=== PATIENT | male | born 1945 | race Caucasian/White ===

== ENCOUNTER 2016-12-14 05:29 | Inpatient (IN) | payer MEDICARE, OTHER ==
[2016-12-14] MEDS ORDERED: HYDROmorphone 0.5 MG/0.5 ML Syringe IVPUSH ONE (06:07)
[2016-12-14] MEDS ORDERED: Sodium Chloride 0.9% 1,000 ML IV SCH (06:15)
--- NOTE | 2016-12-14 06:15 | EDM.PDOC ---
<Minor Wilson - Last Filed: 12/14/16 06:39> ED HPI GENERAL MEDICAL PROBLEM - General Chief Complaint: Abdominal Pain Stated Complaint: ABD/CHEST PAIN Time Seen by Provider: 12/14/16 06:05 Source of Information: Reports: Patient History Limitations: Reports: No Limitations - History of Present Illness INITIAL COMMENTS - FREE TEXT/NARRATIVE: 71-year-old male woke this morning with epigastric pain radiating into the substernal area and neck about 2-1/2 hours ago. It was not accompanied with diaphoresis, shortness of breath but he does feel his abdomen is somewhat distended. Pain radiates into his back as well. No nausea or vomiting. No diarrhea. No fevers or chills. 2 years ago he had a section of bowel removed due to a "twisted colon". This feels different. He was scheduled to have an annual physical at the [facility] today. Onset: Unknown/Unsure (Woke with pain at 4 AM) Location: Reports: Chest, Abdomen Quality: Reports: Ache, Burning Severity: Moderate Improves with: Reports: None Worsens with: Reports: Breathing (Deep breath causes increased pain) Associated Symptoms: Reports: Chest Pain, Malaise. Denies: Confusion, Cough, Diaphoresis, Fever/Chills, Nausea/Vomiting, Shortness of Breath Upper Abdomen Pain Score (Numeric/FACES): 10 - Related Data Allergies Allergy/AdvReac Type Severity Reaction Status Date / Time No Known Allergies Allergy Verified 12/14/16 05:42 Home Meds: Home Meds Lisinopril [Prinivil] 10 mg PO DAILY 07/09/13 [History] Lovastatin [Mevacor] 20 mg PO BEDTIME 07/09/13 [History] Oxybutynin Chloride [Ditropan Xl] 5 mg PO BID 07/09/13 [History] Terazosin HCl [Terazosin] 10 mg PO BEDTIME 07/09/13 [History] amLODIPine [Norvasc] 2.5 mg PO BID 07/09/13 [History] glipiZIDE [Glucotrol] 2.5 mg PO BIDAC 07/09/13 [History] metFORMIN HCl [Fortamet] 1,000 mg PO BIDAC 07/09/13 [History] Gabapentin [Neurontin] 600 mg PO QID 12/14/16 [History] Past Medical History HEENT History: Reports: Impaired Vision Cardiovascular History: Reports: High Cholesterol, Hypertension Gastrointestinal History: Reports: Bowel Obstruction Genitourinary History: Reports: Retention, Urinary, Other (See Below) Other Genitourinary History: enlarged prostate Endocrine/Metabolic History: Reports: Diabetes, Type II Hematologic History: Reports: Blood Transfusion(s) - Infectious Disease History Infectious Disease History: Reports: Chicken Pox, Measles - Past Surgical History GI Surgical History: Reports: Colonoscopy Other GI Surgeries/Procedures: colectomy Musculoskeletal Surgical History: Reports: Knee Replacement, Other (See Below) Other Musculoskeletal Surgeries/Procedures:: back surgery x2 Social & Family History - Tobacco Use Smoking Status *Q: Never Smoker Years of Tobacco use: 40 Used Tobacco, but Quit: No Month Tobacco Last Used: 4 Second Hand Smoke Exposure: No - Caffeine Use Caffeine Use: Reports: Coffee, Soda - Alcohol Use Days Per Week of Alcohol Use: 0 - Recreational Drug Use Recreational Drug Use: No ED ROS GENERAL - Review of Systems Review Of Systems: See Below Constitutional: Reports: Malaise. Denies: Fever, Chills HEENT: Reports: No Symptoms Respiratory: Denies: Shortness of Breath Cardiovascular: Reports: Chest Pain. Denies: Palpitations GI/Abdominal: Reports: Abdominal Pain. Denies: Nausea, Vomiting : Reports: No Symptoms Musculoskeletal: Reports: Back Pain (Chronic and stable) Neurological: Reports: No Symptoms ED EXAM, GI/ABD - Physical Exam Exam: See Below Exam Limited By: No Limitations General Appearance: Alert, Mild Distress (Looks uncomfortable) Eyes: Bilateral: Normal Appearance (No jaundice) Respiratory/Chest: No Respiratory Distress, Lungs Clear Cardiovascular: Regular Rate, Rhythm GI/Abdominal Exam: Normal Bowel Sounds, Distended (Abdomen may be somewhat distended but the patient is very obese. He reacts with tenderness to palpation across the upper abdomen, particularly in the epigastric area. He has cutaneous lipomas palpable, no definite intra-abdominal masses or abnormality) Extremities: Pedal Edema (Just a trace of lower extremity edema which is symmetric) Neurological: Alert, Oriented Psychiatric: Normal Affect, Normal Mood Skin Exam: Warm, Dry EKG INTERPRETATION Rhythm: NSR QRS: RBBB (Patient is a right bundle branch block which is fairly consistent with 2 years prior) Course - Vital Signs Last Recorded V/S: Last Vital Signs Temp 97.7 F 12/14/16 05:41 Pulse 66 12/14/16 08:45 Resp 24 H 12/14/16 05:41 BP 143/60 H 12/14/16 08:45 Pulse Ox 96 12/14/16 08:45 - Orders/Labs/Meds Orders: Active Orders 24 hr Category Date Time Status EKG Documentation Completion [RC] ASDIRECTED Care 12/14/16 06:07 Active EKG Documentation Completion [RC] ASDIRECTED Care 12/14/16 06:07 Active Peripheral IV Care [RC] . DIRECTED Care 12/14/16 09:21 Active Chest Abdomen Pelvis w Cont [CT] Stat Exams 12/14/16 06:58 Taken RED BLOOD CELLS LP [BBK] Stat Lab 12/14/16 09:19 Ordered TYPE AND SCREEN [BBK] Stat Lab 12/14/16 09:19 Ordered Pantoprazole [ProTONIX IV] Med 12/14/16 09:30 Active 80 mg IVPUSH .BOLUS Sodium Chloride 0.9% [Normal Saline] 1,000 ml Med 12/14/16 06:15 Active IV ASDIRECTED Sodium Chloride 0.9% [Normal Saline] 100 ml Med 12/14/16 10:00 Active Pantoprazole [ProTONIX IV] 80 mg IV 10 mls/hr Sodium Chloride 0.9% [Saline Flush] Med 12/14/16 09:21 Active 10 ml FLUSH ASDIRECTED PRN Peripheral IV Insertion Adult [OM.PC] Urgent Oth 12/14/16 09:21 Ordered EKG 12 Lead [EK] Routine Ther 12/14/16 06:07 Ordered Medication Orders Sodium Chloride (Normal Saline) 1,000 mls @ 150 mls/hr IV ASDIRECTED HITESH Last Admin: 12/14/16 06:15 Dose: 150 mls/hr Pantoprazole Sodium 80 mg/ (Sodium Chloride) 100 mls @ 10 mls/hr IV .Q10H HITESH Pantoprazole Sodium (Protonix Iv) 80 mg IVPUSH .BOLUS HITESH Sodium Chloride (Saline Flush) 10 ml FLUSH ASDIRECTED PRN PRN Reason: Keep Vein Open Labs: Laboratory Tests 12/14/16 12/14/16 Range/Units 06:18 06:18 WBC 12.0 H (4.5-11.0) K/uL RBC 4.41 (4.30-5.90) M/uL Hgb 12.6 (12.0-15.0) g/dL Hct 37.9 L (40.0-54.0) % MCV 86 (80-98) fL MCH 29 (27-31) pg MCHC 33 (32-36) % Plt Count 349 (150-400) K/uL Neut % (Auto) 70 H (36-66) % Lymph % (Auto) 19 L (24-44) % [place] % (Auto) 8 H (2-6) % Eos % (Auto) 2 (2-4) % Baso % (Auto) 1 (0-1) % Sodium 140 (140-148) mmol/L Potassium 3.9 (3.6-5.2) mmol/L Chloride 104 (100-108) mmol/L Carbon Dioxide 24 (21-32) mmol/L Anion Gap 12.1 (5.0-14.0) mmol/L BUN 19 H D (7-18) mg/dL Creatinine 0.9 (0.8-1.3) mg/dL Est Cr Clr Drug Dosing 77.73 mL/min Estimated GFR (MDRD) > 60 (>60) Glucose 210 H (74-106) mg/dL Calcium 8.4 L (8.5-10.1) mg/dL Total Bilirubin 0.3 D (0.2-1.0) mg/dL AST 15 (15-37) U/L ALT 26 (12-78) U/L Alkaline Phosphatase 70 (46-116) U/L Troponin I < 0.017 (0.000-0.056) ng/mL Total Protein 7.0 (6.4-8.2) g/dL Albumin 3.2 L (3.4-5.0) g/dL Globulin 3.8 H (2.3-3.5) g/dL Albumin/Globulin Ratio 0.8 L (1.2-2.2) Amylase 19 L (25-115) U/L Lipase 75 (73-393) U/L Meds: Medications Generic Name Dose Route Start Last Admin Trade Name Freq PRN Reason Stop Dose Admin Sodium Chloride 1,000 mls @ 150 mls/hr 12/14/16 06:15 12/14/16 06:15 Normal Saline IV 150 mls/hr ASDIRECTED HITESH Administration Pantoprazole Sodium 80 mg/ 100 mls @ 10 mls/hr 12/14/16 10:00 Sodium Chloride IV .Q10H HITESH Pantoprazole Sodium 80 mg 12/14/16 09:30 Protonix Iv IVPUSH .BOLUS HITESH Sodium Chloride 10 ml 12/14/16 09:21 Saline Flush FLUSH ASDIRECTED PRN Keep Vein Open Discontinued Medications Generic Name Dose Route Start Last Admin Trade Name Freq PRN Reason Stop Dose Admin Hydromorphone HCl 0.5 mg 12/14/16 06:07 12/14/16 06:15 Dilaudid IVPUSH 12/14/16 06:08 0.5 mg ONETIME ONE Administration Sodium Chloride 85 mls @ 3.5 mls/sec 12/14/16 07:30 12/14/16 07:36 Normal Saline IV 12/14/16 08:30 3.5 mls/sec ASDIRECTED HITESH Administration Iopamidol 150 ml 12/14/16 07:16 12/14/16 07:36 Isovue-300 (61%) IV 12/14/16 08:30 150 ml . DIRECTED PRN Administration RADIOLOGY EXAM Sodium Chloride 10 ml 12/14/16 07:16 12/14/16 07:33 Saline Flush FLUSH 12/14/16 08:30 10 ml ONETIME PRN Administration per radiology protocol - Re-Assessments/Exams Free Text/Narrative Re-Assessment/Exam: 12/14/16 06:41 An IV was established and the patient was given 0.5 mg of Dilaudid IV and fluids were started at 250 mL an hour of normal saline. His vitals remained stable. CBC CMP amylase lipase troponin were obtained with the intention of obtaining a CT scan of the chest and abdomen. Care was turned over to Officer at 7 AM. Departure - Departure Disposition: Admitted As Inpatient 66 Clinical Impression: Epigastric abdominal pain - Discharge Information Referrals: PCP,None [Primary Care Provider] - Forms: ED Department Discharge - My Orders Last 24 Hours: My Active Orders 12/14/16 06:58 Chest Abdomen Pelvis w Cont [CT] Stat 12/14/16 09:19 RED BLOOD CELLS LP [BBK] Stat TYPE AND SCREEN [BBK] Stat 12/14/16 09:21 Peripheral IV Care [RC] . DIRECTED Sodium Chloride 0.9% [Saline Flush] 10 ml FLUSH ASDIRECTED PRN Peripheral IV Insertion Adult [OM.PC] Urgent 12/14/16 09:30 Pantoprazole [ProTONIX IV] 80 mg IVPUSH .BOLUS 12/14/16 10:00 Sodium Chloride 0.9% [Normal Saline] 100 ml Pantoprazole [ProTONIX IV] 80 mg IV 10 mls/hr - Assessment/Plan Last 24 Hours: My Active Orders 12/14/16 06:58 Chest Abdomen Pelvis w Cont [CT] Stat 12/14/16 09:19 RED BLOOD CELLS LP [BBK] Stat TYPE AND SCREEN [BBK] Stat 12/14/16 09:21 Peripheral IV Care [RC] . DIRECTED Sodium Chloride 0.9% [Saline Flush] 10 ml FLUSH ASDIRECTED PRN Peripheral IV Insertion Adult [OM.PC] Urgent 12/14/16 09:30 Pantoprazole [ProTONIX IV] 80 mg IVPUSH .BOLUS 12/14/16 10:00 Sodium Chloride 0.9% [Normal Saline] 100 ml Pantoprazole [ProTONIX IV] 80 mg IV 10 mls/hr <OfficerSteve - Last Filed: 12/14/16 09:37> Departure - Departure Time of Disposition: 09:36 Condition: Fair - Assessment/Plan Plan: Assessment Acuity = acute Site and laterality = epigastric abdominal pain complicated patient with known history of hypertension, dyslipidemia and diabetes mellitus type 2 Etiology = unclear suspicious for perforated ulcer with hemoperitoneum Manifestations = pain Location of injury = Home Lab values = WBC elevated at 12.0 consistent leukocytosis, albumin low at 3.[address] scan reveals a small amount of fluid with the hypodensity consistent with hemoperitoneum of uncertain etiology Plan Discussed case with hospitalist operations team leader as well as general surgery on-call plan is to admit to the hospital IV Protonix and serial abdominal exams as well as pain control Patient was in agreement with the plan all questions were answered This note was dictated using [employer] voice recognition software please call with any questions.
[2016-12-14] MEDS ORDERED: Sodium Chloride 0.9% 10 ML Syringe FLUSH PRN ×3 (07:16→11:01)
[2016-12-14] MEDS ORDERED: Iopamidol 612 MG/ML 150 ML Bottle IV PRN (07:16)
[2016-12-14] MEDS ORDERED: Pantoprazole 40 MG Vial IVPUSH SCH (09:30)
[2016-12-14] MEDS ORDERED: Sodium Chloride 0.9% 100 ML with Pantoprazole 80 MG IV SCH ×4 (09:30→10:00)
[2016-12-14] MEDS ORDERED: Pantoprazole 40 MG Vial IVPUSH ONE (10:00)
--- NOTE | 2016-12-14 10:57 | PCM.HP ---
H&P History of Present Illness - General Date of Service: 12/14/16 Admit Problem/Dx: Source of Information: Patient, Provider, RN Notes Reviewed History Limitations: Reports: No Limitations - History of Present Illness Initial Comments - Free Text/Narative: Mr. Banks is a 71-year-old gentleman who is admitted through the emergency department with hemoperitoneum likely secondary to perforated ulcer. He woke this morning at approximately 4 AM with severe pain in the supraumbilical and epigastric region, pain described as an intense ache that seem to come and go. Pain radiates into the chest and shoulders. He is noted no precipitating or relieving factors. He does have a past history of ulcer disease with previous GI bleed although this occurred many years ago. He denies recent use of nonsteroidals or alcohol. He does chew tobacco and drinks 2 cups of coffee per day. Hemoglobin was found to be within normal range and his initial troponin level is normal. CT scan of the abdomen shows evidence of a small amount of hemoperitoneum, no other significant abnormalities were identified. He's been seen and evaluated by Dr. Prado and current plan is for conservative management. Upper Abdomen Pain Score (Numeric/FACES): 10 - Related Data Allergies/Adverse Reactions: Allergies Allergy/AdvReac Type Severity Reaction Status Date / Time No Known Allergies Allergy Verified 12/14/16 05:42 Home Medications: Home Meds Lisinopril [Prinivil] 10 mg PO DAILY 07/09/13 [History] Lovastatin [Mevacor] 20 mg PO BEDTIME 07/09/13 [History] Oxybutynin Chloride [Ditropan Xl] 5 mg PO BID 07/09/13 [History] Terazosin HCl [Terazosin] 10 mg PO BEDTIME 07/09/13 [History] amLODIPine [Norvasc] 2.5 mg PO BID 07/09/13 [History] glipiZIDE [Glucotrol] 2.5 mg PO BIDAC 07/09/13 [History] metFORMIN HCl [Fortamet] 1,000 mg PO BIDAC 07/09/13 [History] Gabapentin [Neurontin] 600 mg PO QID 12/14/16 [History] Past Medical History HEENT History: Reports: Impaired Vision Cardiovascular History: Reports: High Cholesterol, Hypertension Gastrointestinal History: Reports: Bowel Obstruction Genitourinary History: Reports: Retention, Urinary, Other (See Below) Other Genitourinary History: enlarged prostate Endocrine/Metabolic History: Reports: Diabetes, Type II Hematologic History: Reports: Blood Transfusion(s) - Infectious Disease History Infectious Disease History: Reports: Chicken Pox, Measles - Past Surgical History GI Surgical History: Reports: Colonoscopy Other GI Surgeries/Procedures: colectomy Musculoskeletal Surgical History: Reports: Knee Replacement, Other (See Below) Other Musculoskeletal Surgeries/Procedures:: back surgery x2 Social & Family History - Tobacco Use Smoking Status *Q: Never Smoker Years of Tobacco use: 40 Used Tobacco, but Quit: No Month Tobacco Last Used: 4 Second Hand Smoke Exposure: No - Caffeine Use Caffeine Use: Reports: Coffee, Soda - Alcohol Use Days Per Week of Alcohol Use: 0 - Recreational Drug Use Recreational Drug Use: No H&P Review of Systems - Review of Systems: Review Of Systems: See Below General: Denies: Fever, Chills, Weakness, Diaphoresis HEENT: Reports: No Symptoms Pulmonary: Reports: No Symptoms Cardiovascular: Reports: No Symptoms Gastrointestinal: Reports: Abdominal Pain. Denies: Black Stool, Bloody Stool, Diarrhea, Difficulty Swallowing, Distension, Nausea, Vomiting Genitourinary: Reports: Incontinence. Denies: Dysuria, Frequency, Burning Musculoskeletal: Reports: No Symptoms Skin: Reports: No Symptoms Psychiatric: Reports: No Symptoms Neurological: Reports: No Symptoms Hematologic/Lymphatic: Reports: No Symptoms Immunologic: Reports: No Symptoms Exam - Exam Exam: See Below - Vital Signs Vital Signs: Last Vital Signs Temp 97.7 F 12/14/16 05:41 Pulse 57 L 12/14/16 09:51 Resp 24 H 12/14/16 05:41 BP 140/54 L 12/14/16 09:51 Pulse Ox 95 12/14/16 09:51 Weight: 255 lb 4.725 oz - Exam Quality Assessment: DVT Prophylaxis General: Alert, Oriented, Cooperative, Moderate Distress HEENT: Conjunctiva Clear, Hearing Intact, Mucosa Moist & [place], Normal Nasal Septum, Posterior Pharynx Clear, Pupils Equal Neck: Supple, Trachea Midline, +2 Carotid Pulse wo Bruit Lungs: Clear to Auscultation, Normal Respiratory Effort Cardiovascular: Regular Rate, Regular Rhythm, Normal S1, Normal S2. No: Systolic Murmur, Diastolic Murmur GI/Abdominal Exam: Normal Bowel Sounds, Soft, No Organomegaly, Tender. No: Distended, Guarding, Rigid, Rebound Back Exam: Normal Inspection, Full Range of Motion Extremities: Normal Range of Motion, Non-Tender, No Pedal Edema Skin: Warm, Dry, Intact Neurological: Cranial Nerves Intact, Strength Equal Bilateral, Normal Speech, Normal Tone. No: Sensation Intact Neuro Extensive - Mental Status: Alert, Oriented x3, Normal Mood/Affect, Normal Cognition, Memory Intact - Patient Data Lab Results Last 24 hrs: Laboratory Results - last 24 hr 12/14/16 12/14/16 12/14/16 Range/Units 06:18 06:18 06:18 WBC 12.0 H (4.5-11.0) K/uL RBC 4.41 (4.30-5.90) M/uL Hgb 12.6 (12.0-15.0) g/dL Hct 37.9 L (40.0-54.0) % MCV 86 (80-98) fL MCH 29 (27-31) pg MCHC 33 (32-36) % Plt Count 349 (150-400) K/uL Neut % (Auto) 70 H (36-66) % Lymph % (Auto) 19 L (24-44) % [place] % (Auto) 8 H (2-6) % Eos % (Auto) 2 (2-4) % Baso % (Auto) 1 (0-1) % Sodium 140 (140-148) mmol/L Potassium 3.9 (3.6-5.2) mmol/L Chloride 104 (100-108) mmol/L Carbon Dioxide 24 (21-32) mmol/L Anion Gap 12.1 (5.0-14.0) mmol/L BUN 19 H D (7-18) mg/dL Creatinine 0.9 (0.8-1.3) mg/dL Est Cr Clr Drug Dosing 77.73 mL/min Estimated GFR (MDRD) > 60 (>60) Glucose 210 H (74-106) mg/dL Calcium 8.4 L (8.5-10.1) mg/dL Total Bilirubin 0.3 D (0.2-1.0) mg/dL AST 15 (15-37) U/L ALT 26 (12-78) U/L Alkaline Phosphatase 70 (46-116) U/L Troponin I < 0.017 (0.000-0.056) ng/mL Total Protein 7.0 (6.4-8.2) g/dL Albumin 3.2 L (3.4-5.0) g/dL Globulin 3.8 H (2.3-3.5) g/dL Albumin/Globulin Ratio 0.8 L (1.2-2.2) Amylase 19 L (25-115) U/L Lipase 75 (73-393) U/L Blood Type A POSITIVE Gel Antibody Screen Negative Crossmatch See Detail Result Diagrams: 12/14/16 06:18 12/14/16 06:18 *Q Meaningful Use (ADM) - VTE *Q VTE Criteria *Q: VTE Pharmacological Contraindications *Q: Active Hemorrhage - VTE Risk Assess *Q Each Risk Factor Represents 1 Point: Obesity (BMI greater than 30) Total Score 1 Point Risk Factors: 1 Each Risk Factor Represents 2 Points: Age 60 - 74 Years Total Score 2 Point Risk Factors: 2 Each Risk Factor Represents 3 Points: None Total Score 3 Point Risk Factors: 0 Each Risk Factor Represents 5 Points: None Total Score 5 Point Risk Factors: 0 Venous Thromboembolism Risk Factor Score *Q: 3 - Stroke *Q Stroke Criteria *Q: - AMI *Q AMI Criteria *Q: Problem List Initiated/Reviewed/Updated: Yes Orders Last 24hrs: Active Orders 24 hr Category Date Time Status Patient Status Manage Transfer [TRANSFER] Routine ADT 12/14/16 10:14 Active EKG Documentation Completion [RC] ASDIRECTED Care 12/14/16 06:07 Active EKG Documentation Completion [RC] ASDIRECTED Care 12/14/16 06:07 Active Peripheral IV Care [RC] . DIRECTED Care 12/14/16 09:21 Active Chest Abdomen Pelvis w Cont [CT] Stat Exams 12/14/16 06:58 Taken PATIENT RETYPE [BBK] Stat Lab 12/14/16 06:18 Results RED BLOOD CELLS LP [BBK] Stat Lab 12/14/16 06:18 Results TYPE AND SCREEN [BBK] Stat Lab 12/14/16 06:18 Results Sodium Chloride 0.9% [Normal Saline] 1,000 ml Med 12/14/16 06:15 Active IV ASDIRECTED Sodium Chloride 0.9% [Normal Saline] 100 ml Med 12/14/16 10:00 Active Pantoprazole [ProTONIX IV] 80 mg IV 10 mls/hr Sodium Chloride 0.9% [Saline Flush] Med 12/14/16 09:21 Active 10 ml FLUSH ASDIRECTED PRN Peripheral IV Insertion Adult [OM.PC] Urgent Oth 12/14/16 09:21 Ordered Resuscitation Status Routine Resus Stat 12/14/16 10:17 Ordered EKG 12 Lead [EK] Routine Ther 12/14/16 06:07 Ordered Medication Orders Sodium Chloride (Normal Saline) 1,000 mls @ 150 mls/hr IV ASDIRECTED HITESH Last Admin: 12/14/16 06:15 Dose: 150 mls/hr Pantoprazole Sodium 80 mg/ (Sodium Chloride) 100 mls @ 10 mls/hr IV .Q10H HITESH Last Admin: 12/14/16 10:10 Dose: 10 mls/hr Sodium Chloride (Saline Flush) 10 ml FLUSH ASDIRECTED PRN PRN Reason: Keep Vein Open Last Admin: 12/14/16 10:10 Dose: 10 ml Assessment/Plan Comment:: ASSESSMENT AND PLAN HEMOPERITONEUM-abrupt onset of supraumbilical and epigastric abdominal pain earlier this morning. Hemoglobin stable, CT scan shows evidence of a small amount of hemoperitoneum. Most likely cause would be perforated contained ulcer. -Surgical follow-up per Dr. Prado -Serial hemoglobin levels -Monitor in ICU -Protonix 80 mg bolus given in ED, started on continuous infusion at 8 mg per hour. -Outpatient follow-up with EGD -IV fluids for hydration -Type and cross to hold 4 units of red blood cells -Nothing by mouth TYPE 2 DIABETES MELLITUS -Hold glipizide and metformin while nothing by mouth -4 times a day glucometers -Low-dose sliding scale [employer] MAINTENANCE ISSUES -DVT prophylaxis; SCUDs, hold on anticoagulation given active bleed -GI prophylaxis; Protonix as above -[place] catheter; not indicated -Nutrition; nothing by mouth -Nicotine dependence; nicotine patch CODE STATUS-FULL CODE ADMISSION STATUS-patient will be admitted to inpatient status, expect at least a 2 night hospital stay for evaluation and management of problems as outlined above. At the time of this admission I do not reasonably expected evaluation and management of this problem will require more than a 96 hour hospital stay. DISPOSITION-anticipate discharge to home after the hospital stay. PRIMARY CARE PROVIDER-[facility] system
[2016-12-14] MEDS ORDERED: 50% Dextrose in Water 50 ML Syringe IV PRN (11:01)
[2016-12-14] MEDS ORDERED: Magnesium Hydroxide 400 MG/5 ML Susp 30 ML Cup PO PRN (11:01)
[2016-12-14] MEDS ORDERED: Albuterol 0.083% 2.5 MG/3 ML Neb Soln NEB PRN (11:01)
[2016-12-14] MEDS ORDERED: oxyCODONE 5 MG Tab PO PRN (11:01)
[2016-12-14] MEDS ORDERED: HYDROmorphone 0.5 MG/0.5 ML Syringe IVPUSH PRN (11:01)
[2016-12-14] MEDS ORDERED: Glucose Gel 15 GM in 37.5 GM Tube PO PRN (11:01)
[2016-12-14] MEDS ORDERED: Polyethylene Glycol 3350 Powder 17 GM Packet PO PRN (11:01)
[2016-12-14] MEDS ORDERED: Docusate Sodium 100 MG Cap PO PRN (11:01)
[2016-12-14] MEDS ORDERED: Ondansetron 4 MG/2 ML SDV IV PRN (11:01)
--- NOTE | 2016-12-14 11:23 | PCM.CONS ---
H&P History of Present Illness - General Date of Service: 12/14/16 Admit Problem/Dx: This 71 year old white male was in his usual state of good health when at about 4:15 this AM he noted onset of epigastric pain. He said the pain spread to his neck, chest and abdomen. Currently he feels well and comfortable. He denies similar prior complaints. He occasionally takes ibuprofen, last was about two weeks ago. No daily ASA. No nausea nor vomiting. He does chew tobacco. He quit smoking 40 years ago. He consumes no alcohol. He has 2-3 cups of coffee every morning. Source of Information: Patient, Provider History Limitations: Reports: No Limitations - History of Present Illness Initial Comments - Free Text/Narative: See above narrative. Onset of Symptoms: Reports: Today, Sudden Symptom Onset Date: 12/14/16 Symptom Onset Time: 04:15 Duration of Symptoms: Reports: Hour(s): Location: Reports: Abdomen Quality: Reports: Sharp Severity: Moderate (Now feels pretty good. This pain was no where near as painful as when he had a bowel obstruction a couple of years ago.) Improves with: Reports: None Worsens with: Reports: None Associated Symptoms: Reports: No Other Symptoms Upper Abdomen Pain Score (Numeric/FACES): 10 - Related Data Allergies/Adverse Reactions: Allergies Allergy/AdvReac Type Severity Reaction Status Date / Time No Known Allergies Allergy Verified 12/14/16 05:42 Home Medications: Home Meds Lisinopril [Prinivil] 10 mg PO DAILY 07/09/13 [History] Lovastatin [Mevacor] 20 mg PO BEDTIME 07/09/13 [History] Oxybutynin Chloride [Ditropan Xl] 5 mg PO BID 07/09/13 [History] Terazosin HCl [Terazosin] 10 mg PO BEDTIME 07/09/13 [History] amLODIPine [Norvasc] 2.5 mg PO BID 07/09/13 [History] glipiZIDE [Glucotrol] 2.5 mg PO BIDAC 07/09/13 [History] metFORMIN HCl [Fortamet] 1,000 mg PO BIDAC 07/09/13 [History] Gabapentin [Neurontin] 600 mg PO QID 12/14/16 [History] Past Medical History HEENT History: Reports: Impaired Vision Cardiovascular History: Reports: High Cholesterol, Hypertension Gastrointestinal History: Reports: Bowel Obstruction (Involved partial small bowel resection.) Genitourinary History: Reports: Retention, Urinary, Other (See Below) Other Genitourinary History: enlarged prostate Endocrine/Metabolic History: Reports: Diabetes, Type II Hematologic History: Reports: Blood Transfusion(s) - Infectious Disease History Infectious Disease History: Reports: Chicken Pox, Measles - Past Surgical History GI Surgical History: Reports: Colonoscopy Other GI Surgeries/Procedures: colectomy Musculoskeletal Surgical History: Reports: Knee Replacement, Other (See Below) Other Musculoskeletal Surgeries/Procedures:: back surgery x2 Social & Family History - Tobacco Use Smoking Status *Q: Former Smoker (Quit 40 years ago.) Tobacco Use Within Last Twelve Months: Snuff/Dip (He does "chew.") Years of Tobacco use: 40 Used Tobacco, but Quit: No Month Tobacco Last Used: 4 Second Hand Smoke Exposure: No - Tobacco Core Measures Smokeless Tobacco Use History: Chewing Tobacco - Caffeine Use Caffeine Use: Reports: Coffee, Soda - Alcohol Use Days Per Week of Alcohol Use: 0 - Recreational Drug Use Recreational Drug Use: No H&P Review of Systems - Review of Systems: Review Of Systems: See Below General: Reports: Other (Abdominal pain improved. ) HEENT: Reports: No Symptoms Pulmonary: Reports: No Symptoms Cardiovascular: Reports: No Symptoms Gastrointestinal: Reports: Abdominal Pain Genitourinary: Reports: No Symptoms Musculoskeletal: Reports: No Symptoms Skin: Reports: No Symptoms Psychiatric: Reports: No Symptoms Neurological: Reports: Other (Diabetic neuropathy. ) Hematologic/Lymphatic: Reports: No Symptoms Immunologic: Reports: No Symptoms Exam - Exam Exam: See Below - Vital Signs Vital Signs: Last Vital Signs Temp 97.7 F 12/14/16 05:41 Pulse 57 L 12/14/16 09:51 Resp 24 H 12/14/16 05:41 BP 140/54 L 12/14/16 09:51 Pulse Ox 95 12/14/16 09:51 Weight: 255 lb 4.725 oz - Exam General: Alert, Oriented, Cooperative Lungs: Clear to Auscultation, Normal Respiratory Effort Cardiovascular: Regular Rate GI/Abdominal Exam: Normal Bowel Sounds, Soft, No Distention, Tender ( Epigastrium. ). No: Rebound Extremities: Normal Inspection Skin: Warm, Dry, Intact Neuro Extensive - Mental Status: Alert, Oriented x3, Normal Mood/Affect, Normal Cognition, Memory Intact Psychiatric: Alert, Normal Affect, Normal Mood - Patient Data Lab Results Last 24 hrs: Laboratory Results - last 24 hr 12/14/16 12/14/16 12/14/16 Range/Units 06:18 06:18 06:18 WBC 12.0 H (4.5-11.0) K/uL RBC 4.41 (4.30-5.90) M/uL Hgb 12.6 (12.0-15.0) g/dL Hct 37.9 L (40.0-54.0) % MCV 86 (80-98) fL MCH 29 (27-31) pg MCHC 33 (32-36) % Plt Count 349 (150-400) K/uL Neut % (Auto) 70 H (36-66) % Lymph % (Auto) 19 L (24-44) % [place] % (Auto) 8 H (2-6) % Eos % (Auto) 2 (2-4) % Baso % (Auto) 1 (0-1) % Sodium 140 (140-148) mmol/L Potassium 3.9 (3.6-5.2) mmol/L Chloride 104 (100-108) mmol/L Carbon Dioxide 24 (21-32) mmol/L Anion Gap 12.1 (5.0-14.0) mmol/L BUN 19 H D (7-18) mg/dL Creatinine 0.9 (0.8-1.3) mg/dL Est Cr Clr Drug Dosing 77.73 mL/min Estimated GFR (MDRD) > 60 (>60) Glucose 210 H (74-106) mg/dL Calcium 8.4 L (8.5-10.1) mg/dL Total Bilirubin 0.3 D (0.2-1.0) mg/dL AST 15 (15-37) U/L ALT 26 (12-78) U/L Alkaline Phosphatase 70 (46-116) U/L Troponin I < 0.017 (0.000-0.056) ng/mL Total Protein 7.0 (6.4-8.2) g/dL Albumin 3.2 L (3.4-5.0) g/dL Globulin 3.8 H (2.3-3.5) g/dL Albumin/Globulin Ratio 0.8 L (1.2-2.2) Amylase 19 L (25-115) U/L Lipase 75 (73-393) U/L Blood Type A POSITIVE Gel Antibody Screen Negative Crossmatch See Detail Result Diagrams: 12/14/16 11:13 12/14/16 06:18 Imaging Impressions Last 24 hrs: Small amount of blood by his stomach. NO pneumoperitoneum. Consult PN Assessment/Plan Procedures: Procedures ASSAY OF LACTIC ACID (04/17/14) ASSAY OF LIPASE (04/17/14) ASSAY OF MAGNESIUM (04/17/14) ASSAY OF NATRIURETIC PEPTIDE (04/17/14) ASSAY OF PHOSPHORUS (04/17/14) CHEST X-RAY 2VW FRONTAL&LATL (04/17/14) COMPLETE CBC AUTOMATED (04/17/14) COMPLETE CBC W/AUTO DIFF WBC (04/17/14) COMPREHEN METABOLIC PANEL (04/17/14) CT ABD & PELV W/CONTRAST (04/17/14) ELECTROCARDIOGRAM REPORT (04/17/14) ELECTROCARDIOGRAM TRACING (04/17/14) EMERGENCY DEPT VISIT (06/28/15) EMERGENCY DEPT VISIT (06/28/15) EMERGENCY DEPT VISIT (04/17/14) EMERGENCY DEPT VISIT (04/17/14) EMERGENCY DEPT VISIT (07/09/13) EMERGENCY DEPT VISIT (07/09/13) GLUCOSE BLOOD TEST (04/17/14) HYDRATE IV INFUSION ADD-ON (04/17/14) IIV4 VACC NO PRSV 0.5 ML IM (04/17/14) INCISE EXTERNAL HEMORRHOID (06/28/15) INSERT TEMP BLADDER CATH (06/28/15) MEASURE BLOOD OXYGEN LEVEL (04/17/14) METABOLIC PANEL TOTAL CA (04/17/14) ROUTINE VENIPUNCTURE (04/17/14) THER/PROPH/DIAG INJ IV PUSH (06/28/15) TISSUE EXAM BY PATHOLOGIST (04/17/14) TISSUE EXAM BY PATHOLOGIST (04/17/14) TISSUE EXAM BY PATHOLOGIST (04/17/14) TX/PRO/DX INJ NEW DRUG ADDON (04/17/14) TX/PRO/DX INJ SAME DRUG MANAGER URGENT CARE (04/17/14) URINALYSIS AUTO W/SCOPE (06/28/15) US URINE CAPACITY MEASURE (07/09/13) X-RAY EXAM OF ABDOMEN (04/17/14) X-RAY EXAM SERIES ABDOMEN (04/17/14) (1) Epigastric abdominal pain SNOMED Code(s): 16959505 Code(s): R10.13 - EPIGASTRIC PAIN Current Visit: Yes Assessment:: Probable contained gastric ulcer. NO free air. He appears well. Afebrile. WBC 12,000. Hgb 12.6. CT scan shows small about of blood by stomach. Problem List Initiated/Reviewed/Updated: Yes My Orders Last 24 Hours: Admit, serial exams, antacid medication.
[2016-12-14] MEDS: Sodium Chloride 0.9% 1,000 ML IV SCH ×2 (12:06→19:53)
[2016-12-14] MEDS: Sodium Chloride 0.9% 100 ML with Pantoprazole 80 MG IV SCH ×4 (12:08→21:00)
[2016-12-14] MEDS: Insulin Aspart 100 Units/ML 3 ML Pen SUBCUT SCH ×3 (12:19→19:59)
[2016-12-14] MEDS ORDERED: Non-Formulary Medication 1 Each (Gabapentin [Neurontin] 600 MG) PO SCH (16:00)
[2016-12-14] MEDS: Gabapentin 300 MG Cap PO SCH ×2 (16:29→21:04)
--- NOTE | 2016-12-14 17:42 | PCM.CONSN ---
- General Info Date of Service: 12/14/16 Admission Dx/Problem (Free Text): PUD Functional Status: Reports: Pain Controlled - Review of Systems General: Reports: No Symptoms HEENT: Reports: No Symptoms Pulmonary: Reports: No Symptoms Cardiovascular: Reports: No Symptoms Gastrointestinal: Reports: Abdominal Pain (Much less. He feels comfortable. ) Genitourinary: Reports: No Symptoms Musculoskeletal: Reports: No Symptoms Skin: Reports: No Symptoms Neurological: Reports: No Symptoms Psychiatric: Reports: No Symptoms - Patient Data Vitals - Most Recent: Last Vital Signs Temp 97.3 F 12/14/16 16:00 Pulse 57 L 12/14/16 09:51 Resp 12 12/14/16 16:00 BP 177/85 H 12/14/16 16:00 Pulse Ox 98 12/14/16 16:00 Weight - Most Recent: 257 lb 15.053 oz I&O - Last 24 Hours: Intake & Output 12/14/16 12/14/16 12/14/16 06:59 14:59 22:59 Intake Total 1470 Balance 1470 Lab Results Last 24 Hours: Laboratory Results - last 24 hr 12/14/16 12/14/16 12/14/16 Range/Units 11:13 11:13 17:16 Hgb 12.1 11.8 L (12.0-15.0) g/dL Troponin I < 0.017 (0.000-0.056) ng/mL Med Orders - Current: Current Medications Albuterol (Proventil Neb Soln) 2.5 mg NEB Q4H PRN PRN Reason: Shortness Of Breath/wheezing Dextrose (Glutose 15) 15 gm PO ONETIME PRN PRN Reason: Hypoglycemia Dextrose/Water (Dextrose 50% In Water) 50 ml IV ONETIME PRN PRN Reason: Hypoglycemia Docusate Sodium (Colace) 100 mg PO BID PRN PRN Reason: Constipation Gabapentin (Neurontin) 600 mg PO QID [facility] Last Admin: 12/14/16 16:29 Dose: 600 mg Hydromorphone HCl (Dilaudid) 0.5 mg IVPUSH Q2H PRN PRN Reason: Pain Pantoprazole Sodium 80 mg/ (Sodium Chloride) 100 mls @ 10 mls/hr IV .Q10H [facility] Last Admin: 12/14/16 12:08 Dose: Not Given Sodium Chloride (Normal Saline) 1,000 mls @ 125 mls/hr IV ASDIRECTED [facility] Last Admin: 12/14/16 12:06 Dose: 125 mls/hr Insulin Aspart (Novolog) 0 unit SUBCUT QIDACANDBED [facility] PRN Reason: Protocol Last Admin: 12/14/16 17:11 Dose: Not Given Lisinopril (Prinivil) 10 mg PO DAILY [facility] Lovastatin (Mevacor) 20 mg PO BEDTIME [facility] Magnesium Hydroxide (Milk Of Magnesia) 30 ml PO Q12H PRN PRN Reason: Constipation Ondansetron HCl (Zofran) 4 mg IV Q4H PRN PRN Reason: Nausea/Vomiting Oxybutynin Chloride (Oxybutynin) 5 mg PO BID [facility] Oxycodone HCl (Oxycodone) 5 mg PO Q4H PRN PRN Reason: Pain (moderate 4-6) Polyethylene Glycol (Miralax) 17 gm PO DAILY PRN PRN Reason: Constipation Sodium Chloride (Saline Flush) 10 ml FLUSH ASDIRECTED PRN PRN Reason: Keep Vein Open Terazosin HCl (Hytrin) 10 mg PO BEDTIME [facility] Discontinued Medications Hydromorphone HCl (Dilaudid) 0.5 mg IVPUSH ONETIME ONE Stop: 12/14/16 06:08 Last Admin: 12/14/16 06:15 Dose: 0.5 mg Sodium Chloride (Normal Saline) 1,000 mls @ 150 mls/hr IV ASDIRECTED [facility] Last Admin: 12/14/16 06:15 Dose: 150 mls/hr Sodium Chloride (Normal Saline) 85 mls @ 3.5 mls/sec IV ASDIRECTED [facility] Stop: 12/14/16 08:30 Last Admin: 12/14/16 07:36 Dose: 3.5 mls/sec Pantoprazole Sodium 80 mg/ (Sodium Chloride) 100 mls @ 10 mls/hr IV .Q10H [facility] Last Admin: 12/14/16 10:10 Dose: 10 mls/hr Iopamidol (Isovue-300 (61%)) 150 ml IV . DIRECTED PRN PRN Reason: RADIOLOGY EXAM Stop: 12/14/16 08:30 Last Admin: 12/14/16 07:36 Dose: 150 ml Pantoprazole Sodium (Protonix Iv) 80 mg IVPUSH .BOLUS ONE Stop: 12/14/16 10:01 Last Admin: 12/14/16 10:09 Dose: 80 mg Sodium Chloride (Saline Flush) 10 ml FLUSH ONETIME PRN PRN Reason: per radiology protocol Stop: 12/14/16 08:30 Last Admin: 12/14/16 07:33 Dose: 10 ml Sodium Chloride (Saline Flush) 10 ml FLUSH ASDIRECTED PRN PRN Reason: Keep Vein Open Last Admin: 12/14/16 10:10 Dose: 10 ml - Exam GI/Abdominal Exam: Soft, Non-Tender (Except for mild epigastric tenderness. ) Consult PN Assessment/Plan Procedures: Procedures ASSAY OF LACTIC ACID (04/17/14) ASSAY OF LIPASE (04/17/14) ASSAY OF MAGNESIUM (04/17/14) ASSAY OF NATRIURETIC PEPTIDE (04/17/14) ASSAY OF PHOSPHORUS (04/17/14) CHEST X-RAY 2VW FRONTAL&LATL (04/17/14) COMPLETE CBC AUTOMATED (04/17/14) COMPLETE CBC W/AUTO DIFF WBC (04/17/14) COMPREHEN METABOLIC PANEL (04/17/14) CT ABD & PELV W/CONTRAST (04/17/14) ELECTROCARDIOGRAM REPORT (04/17/14) ELECTROCARDIOGRAM TRACING (04/17/14) EMERGENCY DEPT VISIT (06/28/15) EMERGENCY DEPT VISIT (06/28/15) EMERGENCY DEPT VISIT (04/17/14) EMERGENCY DEPT VISIT (04/17/14) EMERGENCY DEPT VISIT (07/09/13) EMERGENCY DEPT VISIT (07/09/13) GLUCOSE BLOOD TEST (04/17/14) HYDRATE IV INFUSION ADD-ON (04/17/14) IIV4 VACC NO PRSV 0.5 ML IM (04/17/14) INCISE EXTERNAL HEMORRHOID (06/28/15) INSERT TEMP BLADDER CATH (06/28/15) MEASURE BLOOD OXYGEN LEVEL (04/17/14) METABOLIC PANEL TOTAL CA (04/17/14) ROUTINE VENIPUNCTURE (04/17/14) THER/PROPH/DIAG INJ IV PUSH (06/28/15) TISSUE EXAM BY PATHOLOGIST (04/17/14) TISSUE EXAM BY PATHOLOGIST (04/17/14) TISSUE EXAM BY PATHOLOGIST (02/03/15) TX/PRO/DX INJ NEW DRUG ADDON (04/17/14) TX/PRO/DX INJ SAME DRUG PRESIDENT CELEBRITY ACQUISTION (04/17/14) URINALYSIS AUTO W/SCOPE (06/28/15) US URINE CAPACITY MEASURE (07/09/13) X-RAY EXAM OF ABDOMEN (04/17/14) X-RAY EXAM SERIES ABDOMEN (04/17/14) (1) Epigastric abdominal pain SNOMED Code(s): 19988498 Code(s): R10.13 - EPIGASTRIC PAIN Current Visit: Yes Assessment:: Doing well. Hgb 11.8. Problem List Initiated/Reviewed/Updated: Yes Plan: Continue to follow.
[2016-12-14] MEDS ORDERED: Lisinopril 10 MG Tab PO ONE (18:19)
[2016-12-14] MEDS ORDERED: amLODIPine 5 MG Tab ONE (18:47)
[2016-12-14] MEDS: amLODIPine 2.5 MG Tab PO SCH (18:53)
[2016-12-14] MEDS ORDERED: TERAZOSIN HCL 10 MG PO SCH (21:00)
[2016-12-14] MEDS ORDERED: OXYBUTYNIN CHLORIDE 5 MG PO SCH (21:00)
[2016-12-14] MEDS: Oxybutynin 5 MG Tab PO SCH (21:03)
[2016-12-14] MEDS: Terazosin 5 MG Cap PO SCH (21:04)
[2016-12-15] MEDS: Sodium Chloride 0.9% 1,000 ML IV SCH (03:49)
--- NOTE | 2016-12-15 06:40 | PCM.CONSN ---
- General Info Date of Service: 12/15/16 Admission Dx/Problem (Free Text): Epigastric pain, probable contained gastric ulcer perforation. Functional Status: Reports: Pain Controlled, Urinating - Review of Systems General: Reports: No Symptoms HEENT: Reports: No Symptoms Pulmonary: Reports: No Symptoms Cardiovascular: Reports: No Symptoms Gastrointestinal: Reports: No Symptoms. Denies: Abdominal Pain (Had some pain last night Rx with dilaudid. ) Genitourinary: Reports: No Symptoms Musculoskeletal: Reports: No Symptoms Skin: Reports: No Symptoms Neurological: Reports: No Symptoms Psychiatric: Reports: No Symptoms - Patient Data Vitals - Most Recent: Last Vital Signs Temp 98.0 F 12/15/16 02:00 Pulse 57 L 12/14/16 09:51 Resp 11 L 12/15/16 06:00 BP 164/60 H 12/15/16 06:00 Pulse Ox 95 12/15/16 06:00 Weight - Most Recent: 257 lb 15.053 oz I&O - Last 24 Hours: Intake & Output 12/14/16 12/14/16 12/15/16 14:59 22:59 06:59 Intake Total 1470 1726 Output Total 400 475 Balance 1070 1251 Lab Results Last 24 Hours: Laboratory Results - last 24 hr 12/14/16 12/14/16 12/14/16 Range/Units 11:13 11:13 17:16 WBC (4.5-11.0) K/uL RBC (4.30-5.90) M/uL Hgb 12.1 11.8 L (12.0-15.0) g/dL Hct (40.0-54.0) % MCV (80-98) fL MCH (27-31) pg MCHC (32-36) % Plt Count (150-400) K/uL Neut % (Auto) (36-66) % Lymph % (Auto) (24-44) % [place] % (Auto) (2-6) % Eos % (Auto) (2-4) % Baso % (Auto) (0-1) % Sodium (140-148) mmol/L Potassium (3.6-5.2) mmol/L Chloride (100-108) mmol/L Carbon Dioxide (21-32) mmol/L Anion Gap (5.0-14.0) mmol/L BUN (7-18) mg/dL Creatinine (0.8-1.3) mg/dL Est Cr Clr Drug Dosing mL/min Estimated GFR (MDRD) (>60) Glucose (74-106) mg/dL Calcium (8.5-10.1) mg/dL Magnesium (1.8-2.4) mg/dL Troponin I < 0.017 (0.000-0.056) ng/mL 12/14/16 12/14/16 12/15/16 Range/Units 17:16 23:00 04:50 WBC 11.7 H (4.5-11.0) K/uL RBC 4.09 L (4.30-5.90) M/uL Hgb 11.8 L 11.7 L (12.0-15.0) g/dL Hct 35.4 L (40.0-54.0) % MCV 87 (80-98) fL MCH 29 (27-31) pg MCHC 33 (32-36) % Plt Count 317 (150-400) K/uL Neut % (Auto) 63 (36-66) % Lymph % (Auto) 25 (24-44) % [place] % (Auto) 9 H (2-6) % Eos % (Auto) 3 (2-4) % Baso % (Auto) 1 (0-1) % Sodium (140-148) mmol/L Potassium (3.6-5.2) mmol/L Chloride (100-108) mmol/L Carbon Dioxide (21-32) mmol/L Anion Gap (5.0-14.0) mmol/L BUN (7-18) mg/dL Creatinine (0.8-1.3) mg/dL Est Cr Clr Drug Dosing mL/min Estimated GFR (MDRD) (>60) Glucose (74-106) mg/dL Calcium (8.5-10.1) mg/dL Magnesium (1.8-2.4) mg/dL Troponin I < 0.017 (0.000-0.056) ng/mL 12/15/16 Range/Units 04:50 WBC (4.5-11.0) K/uL RBC (4.30-5.90) M/uL Hgb (12.0-15.0) g/dL Hct (40.0-54.0) % MCV (80-98) fL MCH (27-31) pg MCHC (32-36) % Plt Count (150-400) K/uL Neut % (Auto) (36-66) % Lymph % (Auto) (24-44) % [place] % (Auto) (2-6) % Eos % (Auto) (2-4) % Baso % (Auto) (0-1) % Sodium 141 (140-148) mmol/L Potassium 3.7 (3.6-5.2) mmol/L Chloride 107 (100-108) mmol/L Carbon Dioxide 27 (21-32) mmol/L Anion Gap 7.4 (5.0-14.0) mmol/L BUN 12 (7-18) mg/dL Creatinine 0.8 (0.8-1.3) mg/dL Est Cr Clr Drug Dosing 87.45 mL/min Estimated GFR (MDRD) > 60 (>60) Glucose 153 H (74-106) mg/dL Calcium 7.7 L (8.5-10.1) mg/dL Magnesium 1.6 L (1.8-2.4) mg/dL Troponin I (0.000-0.056) ng/mL Med Orders - Current: Current Medications Albuterol (Proventil Neb Soln) 2.5 mg NEB Q4H PRN PRN Reason: Shortness Of Breath/wheezing Amlodipine Besylate (Norvasc) 2.5 mg PO BID [facility] Last Admin: 12/14/16 18:53 Dose: 2.5 mg Dextrose (Glutose 15) 15 gm PO ONETIME PRN PRN Reason: Hypoglycemia Dextrose/Water (Dextrose 50% In Water) 50 ml IV ONETIME PRN PRN Reason: Hypoglycemia Docusate Sodium (Colace) 100 mg PO BID PRN PRN Reason: Constipation Gabapentin (Neurontin) 600 mg PO QID [facility] Last Admin: 12/14/16 21:04 Dose: 600 mg Hydromorphone HCl (Dilaudid) 0.5 mg IVPUSH Q2H PRN PRN Reason: Pain Last Admin: 12/15/16 01:24 Dose: 0.5 mg Pantoprazole Sodium 80 mg/ (Sodium Chloride) 100 mls @ 10 mls/hr IV .Q10H [facility] Last Admin: 12/14/16 21:00 Dose: 10 mls/hr Sodium Chloride (Normal Saline) 1,000 mls @ 125 mls/hr IV ASDIRECTED [facility] Last Admin: 12/15/16 03:49 Dose: 125 mls/hr Insulin Aspart (Novolog) 0 unit SUBCUT QIDACANDBED [facility] PRN Reason: Protocol Last Admin: 12/14/16 19:59 Dose: Not Given Lisinopril (Prinivil) 10 mg PO DAILY [facility] Lovastatin (Mevacor) 20 mg PO BEDTIME [facility] Last Admin: 12/14/16 21:03 Dose: 20 mg Magnesium Hydroxide (Milk Of Magnesia) 30 ml PO Q12H PRN PRN Reason: Constipation Ondansetron HCl (Zofran) 4 mg IV Q4H PRN PRN Reason: Nausea/Vomiting Oxybutynin Chloride (Oxybutynin) 5 mg PO BID [facility] Last Admin: 12/14/16 21:03 Dose: 5 mg Oxycodone HCl (Oxycodone) 5 mg PO Q4H PRN PRN Reason: Pain (moderate 4-6) Polyethylene Glycol (Miralax) 17 gm PO DAILY PRN PRN Reason: Constipation Sodium Chloride (Saline Flush) 10 ml FLUSH ASDIRECTED PRN PRN Reason: Keep Vein Open Terazosin HCl (Hytrin) 10 mg PO BEDTIME [facility] Last Admin: 12/14/16 21:04 Dose: 10 mg Discontinued Medications Amlodipine Besylate (Norvasc) Confirm Administered Dose 5 mg .ROUTE .STK-MED ONE Stop: 12/14/16 18:48 Last Admin: 12/14/16 18:52 Dose: Not Given Hydromorphone HCl (Dilaudid) 0.5 mg IVPUSH ONETIME ONE Stop: 12/14/16 06:08 Last Admin: 12/14/16 06:15 Dose: 0.5 mg Sodium Chloride (Normal Saline) 1,000 mls @ 150 mls/hr IV ASDIRECTED [facility] Last Admin: 12/14/16 06:15 Dose: 150 mls/hr Sodium Chloride (Normal Saline) 85 mls @ 3.5 mls/sec IV ASDIRECTED [facility] Stop: 12/14/16 08:30 Last Admin: 12/14/16 07:36 Dose: 3.5 mls/sec Pantoprazole Sodium 80 mg/ (Sodium Chloride) 100 mls @ 10 mls/hr IV .Q10H [facility] Last Admin: 12/14/16 10:10 Dose: 10 mls/hr Iopamidol (Isovue-300 (61%)) 150 ml IV . DIRECTED PRN PRN Reason: RADIOLOGY EXAM Stop: 12/14/16 08:30 Last Admin: 12/14/16 07:36 Dose: 150 ml Lisinopril (Prinivil) 10 mg PO ONETIME ONE Stop: 12/14/16 18:20 Last Admin: 12/14/16 18:52 Dose: 10 mg Pantoprazole Sodium (Protonix Iv) 80 mg IVPUSH .BOLUS ONE Stop: 12/14/16 10:01 Last Admin: 12/14/16 10:09 Dose: 80 mg Sodium Chloride (Saline Flush) 10 ml FLUSH ONETIME PRN PRN Reason: per radiology protocol Stop: 12/14/16 08:30 Last Admin: 12/14/16 07:33 Dose: 10 ml Sodium Chloride (Saline Flush) 10 ml FLUSH ASDIRECTED PRN PRN Reason: Keep Vein Open Last Admin: 12/14/16 10:10 Dose: 10 ml - Exam General: Alert, Oriented, Cooperative, No Acute Distress Lungs: Clear to Auscultation, Normal Respiratory Effort Cardiovascular: Regular Rate, Regular Rhythm GI/Abdominal Exam: Normal Bowel Sounds, Soft, Non-Tender Back Exam: Normal Inspection, Full Range of Motion Extremities: Normal Inspection, Normal Range of Motion Skin: Warm, Dry, Intact Neurological: No New Focal Deficit Psy/Mental Status: Alert, Normal Affect, Normal Mood Consult PN Assessment/Plan Procedures: Procedures ASSAY OF LACTIC ACID (04/17/14) ASSAY OF LIPASE (04/17/14) ASSAY OF MAGNESIUM (04/17/14) ASSAY OF NATRIURETIC PEPTIDE (04/17/14) ASSAY OF PHOSPHORUS (04/17/14) CHEST X-RAY 2VW FRONTAL&LATL (04/17/14) COMPLETE CBC AUTOMATED (04/17/14) COMPLETE CBC W/AUTO DIFF WBC (04/17/14) COMPREHEN METABOLIC PANEL (04/17/14) CT ABD & PELV W/CONTRAST (04/17/14) ELECTROCARDIOGRAM REPORT (04/17/14) ELECTROCARDIOGRAM TRACING (04/17/14) EMERGENCY DEPT VISIT (06/28/15) EMERGENCY DEPT VISIT (06/28/15) EMERGENCY DEPT VISIT (04/17/14) EMERGENCY DEPT VISIT (04/17/14) EMERGENCY DEPT VISIT (07/09/13) EMERGENCY DEPT VISIT (07/09/13) GLUCOSE BLOOD TEST (04/17/14) HYDRATE IV INFUSION ADD-ON (04/17/14) IIV4 VACC NO PRSV 0.5 ML IM (04/17/14) INCISE EXTERNAL HEMORRHOID (06/28/15) INSERT TEMP BLADDER CATH (06/28/15) MEASURE BLOOD OXYGEN LEVEL (04/17/14) METABOLIC PANEL TOTAL CA (04/17/14) ROUTINE VENIPUNCTURE (04/17/14) THER/PROPH/DIAG INJ IV PUSH (06/28/15) TISSUE EXAM BY PATHOLOGIST (04/17/14) TISSUE EXAM BY PATHOLOGIST (04/17/14) TISSUE EXAM BY PATHOLOGIST (04/17/14) TX/PRO/DX INJ NEW DRUG ADDON (04/17/14) TX/PRO/DX INJ SAME DRUG SPEECH WRITER (04/17/14) URINALYSIS AUTO W/SCOPE (06/28/15) US URINE CAPACITY MEASURE (07/09/13) X-RAY EXAM OF ABDOMEN (04/17/14) X-RAY EXAM SERIES ABDOMEN (04/17/14) (1) Epigastric abdominal pain SNOMED Code(s): 59308305 Code(s): R10.13 - EPIGASTRIC PAIN Current Visit: Yes Assessment:: Hbg stable at 11. 7. Problem List Initiated/Reviewed/Updated: Yes Plan: Follow.
[2016-12-15] MEDS: Gabapentin 300 MG Cap PO SCH ×4 (06:42→21:19)
[2016-12-15] MEDS: Sodium Chloride 0.9% 100 ML with Pantoprazole 80 MG IV SCH ×4 (07:30→18:46)
[2016-12-15] MEDS: Insulin Aspart 100 Units/ML 3 ML Pen SUBCUT SCH ×4 (08:42→21:20)
[2016-12-15] MEDS: Oxybutynin 5 MG Tab PO SCH ×2 (08:45→21:19)
[2016-12-15] MEDS: amLODIPine 2.5 MG Tab PO SCH ×2 (08:46→21:20)
[2016-12-15] MEDS: Lisinopril 10 MG Tab PO SCH (08:47)
[2016-12-15] MEDS ORDERED: Magnesium Sulfate/Water 2 GM in Premix Bag 1 BAG IV ONE (10:00)
[2016-12-15] MEDS: Magnesium Oxide 400 MG Tab PO SCH ×2 (10:03→21:19)
--- NOTE | 2016-12-15 10:11 | PCM.PN ---
- General Info Date of Service: 12/15/16 Functional Status: Reports: Pain Controlled, Urinating - Review of Systems General: Reports: No Symptoms Pulmonary: Reports: No Symptoms Cardiovascular: Reports: No Symptoms Gastrointestinal: Reports: Abdominal Pain. Denies: Diarrhea, Difficulty Swallowing, Hematochezia, Melena, Nausea, Vomiting Systems Review Comment:: Mr. Banks has remained stable since admission yesterday, there is been no further evidence of active bleeding and his abdominal pain has improved. Still has a mild residual epigastric ache but significantly better than it had been yesterday. Vital signs have been good and he has remained afebrile. - Patient Data Vitals - Most Recent: Last Vital Signs Temp 97.1 F 12/15/16 07:29 Pulse 64 12/15/16 07:29 Resp 17 12/15/16 07:29 BP 135/56 L 12/15/16 08:47 Pulse Ox 93 L 12/15/16 07:29 Weight - Most Recent: 257 lb 15.053 oz I&O - Last 24 Hours: Intake & Output 12/14/16 12/15/16 12/15/16 22:59 06:59 14:59 Intake Total 1470 1726 Output Total 400 925 Balance 1070 801 Lab Results Last 24 Hours: Laboratory Results - last 24 hr 12/14/16 12/14/16 12/14/16 Range/Units 11:13 11:13 17:16 WBC (4.5-11.0) K/uL RBC (4.30-5.90) M/uL Hgb 12.1 11.8 L (12.0-15.0) g/dL Hct (40.0-54.0) % MCV (80-98) fL MCH (27-31) pg MCHC (32-36) % Plt Count (150-400) K/uL Neut % (Auto) (36-66) % Lymph % (Auto) (24-44) % Gem % (Auto) (2-6) % Eos % (Auto) (2-4) % Baso % (Auto) (0-1) % Sodium (140-148) mmol/L Potassium (3.6-5.2) mmol/L Chloride (100-108) mmol/L Carbon Dioxide (21-32) mmol/L Anion Gap (5.0-14.0) mmol/L BUN (7-18) mg/dL Creatinine (0.8-1.3) mg/dL Est Cr Clr Drug Dosing mL/min Estimated GFR (MDRD) (>60) Glucose (74-106) mg/dL Calcium (8.5-10.1) mg/dL Magnesium (1.8-2.4) mg/dL Troponin I < 0.017 (0.000-0.056) ng/mL 12/14/16 12/14/16 12/15/16 Range/Units 17:16 23:00 04:50 WBC 11.7 H (4.5-11.0) K/uL RBC 4.09 L (4.30-5.90) M/uL Hgb 11.8 L 11.7 L (12.0-15.0) g/dL Hct 35.4 L (40.0-54.0) % MCV 87 (80-98) fL MCH 29 (27-31) pg MCHC 33 (32-36) % Plt Count 317 (150-400) K/uL Neut % (Auto) 63 (36-66) % Lymph % (Auto) 25 (24-44) % Gem % (Auto) 9 H (2-6) % Eos % (Auto) 3 (2-4) % Baso % (Auto) 1 (0-1) % Sodium (140-148) mmol/L Potassium (3.6-5.2) mmol/L Chloride (100-108) mmol/L Carbon Dioxide (21-32) mmol/L Anion Gap (5.0-14.0) mmol/L BUN (7-18) mg/dL Creatinine (0.8-1.3) mg/dL Est Cr Clr Drug Dosing mL/min Estimated GFR (MDRD) (>60) Glucose (74-106) mg/dL Calcium (8.5-10.1) mg/dL Magnesium (1.8-2.4) mg/dL Troponin I < 0.017 (0.000-0.056) ng/mL 12/15/16 Range/Units 04:50 WBC (4.5-11.0) K/uL RBC (4.30-5.90) M/uL Hgb (12.0-15.0) g/dL Hct (40.0-54.0) % MCV (80-98) fL MCH (27-31) pg MCHC (32-36) % Plt Count (150-400) K/uL Neut % (Auto) (36-66) % Lymph % (Auto) (24-44) % Gem % (Auto) (2-6) % Eos % (Auto) (2-4) % Baso % (Auto) (0-1) % Sodium 141 (140-148) mmol/L Potassium 3.7 (3.6-5.2) mmol/L Chloride 107 (100-108) mmol/L Carbon Dioxide 27 (21-32) mmol/L Anion Gap 7.4 (5.0-14.0) mmol/L BUN 12 (7-18) mg/dL Creatinine 0.8 (0.8-1.3) mg/dL Est Cr Clr Drug Dosing 87.45 mL/min Estimated GFR (MDRD) > 60 (>60) Glucose 153 H (74-106) mg/dL Calcium 7.7 L (8.5-10.1) mg/dL Magnesium 1.6 L (1.8-2.4) mg/dL Troponin I (0.000-0.056) ng/mL Med Orders - Current: Current Medications Albuterol (Proventil Neb Soln) 2.5 mg NEB Q4H PRN PRN Reason: Shortness Of Breath/wheezing Amlodipine Besylate (Norvasc) 2.5 mg PO BID [facility] Last Admin: 12/15/16 08:46 Dose: 2.5 mg Dextrose (Glutose 15) 15 gm PO ONETIME PRN PRN Reason: Hypoglycemia Dextrose/Water (Dextrose 50% In Water) 50 ml IV ONETIME PRN PRN Reason: Hypoglycemia Docusate Sodium (Colace) 100 mg PO BID PRN PRN Reason: Constipation Gabapentin (Neurontin) 600 mg PO QID [facility] Last Admin: 12/15/16 06:42 Dose: 600 mg Hydromorphone HCl (Dilaudid) 0.5 mg IVPUSH Q2H PRN PRN Reason: Pain Last Admin: 12/15/16 01:24 Dose: 0.5 mg Pantoprazole Sodium 80 mg/ (Sodium Chloride) 100 mls @ 10 mls/hr IV .Q10H [facility] Last Admin: 12/15/16 07:30 Dose: 10 mls/hr Magnesium Sulfate 2 gm/ Premix 50 mls @ 25 mls/hr IV ONETIME ONE Stop: 12/15/16 11:59 Sodium Chloride (Normal Saline) 1,000 mls @ 75 mls/hr IV ASDIRECTED [facility] Insulin Aspart (Novolog) 0 unit SUBCUT QIDACANDBED [facility] PRN Reason: Protocol Last Admin: 12/15/16 08:42 Dose: 1 unit Lisinopril (Prinivil) 10 mg PO DAILY [facility] Last Admin: 12/15/16 08:47 Dose: 10 mg Lovastatin (Mevacor) 20 mg PO BEDTIME [facility] Last Admin: 12/14/16 21:03 Dose: 20 mg Magnesium Hydroxide (Milk Of Magnesia) 30 ml PO Q12H PRN PRN Reason: Constipation Magnesium Oxide (Magnesium Oxide) 400 mg PO BID [facility] Ondansetron HCl (Zofran) 4 mg IV Q4H PRN PRN Reason: Nausea/Vomiting Oxybutynin Chloride (Oxybutynin) 5 mg PO BID [facility] Last Admin: 12/15/16 08:45 Dose: 5 mg Oxycodone HCl (Oxycodone) 5 mg PO Q4H PRN PRN Reason: Pain (moderate 4-6) Polyethylene Glycol (Miralax) 17 gm PO DAILY PRN PRN Reason: Constipation Sodium Chloride (Saline Flush) 10 ml FLUSH ASDIRECTED PRN PRN Reason: Keep Vein Open Terazosin HCl (Hytrin) 10 mg PO BEDTIME [facility] Last Admin: 12/14/16 21:04 Dose: 10 mg Discontinued Medications Amlodipine Besylate (Norvasc) Confirm Administered Dose 5 mg .ROUTE .STK-MED ONE Stop: 12/14/16 18:48 Last Admin: 12/14/16 18:52 Dose: Not Given Hydromorphone HCl (Dilaudid) 0.5 mg IVPUSH ONETIME ONE Stop: 12/14/16 06:08 Last Admin: 12/14/16 06:15 Dose: 0.5 mg Sodium Chloride (Normal Saline) 1,000 mls @ 150 mls/hr IV ASDIRECTED [facility] Last Admin: 12/14/16 06:15 Dose: 150 mls/hr Sodium Chloride (Normal Saline) 85 mls @ 3.5 mls/sec IV ASDIRECTED [facility] Stop: 12/14/16 08:30 Last Admin: 12/14/16 07:36 Dose: 3.5 mls/sec Pantoprazole Sodium 80 mg/ (Sodium Chloride) 100 mls @ 10 mls/hr IV .Q10H [facility] Last Admin: 12/14/16 10:10 Dose: 10 mls/hr Sodium Chloride (Normal Saline) 1,000 mls @ 125 mls/hr IV ASDIRECTED [facility] Last Admin: 12/15/16 03:49 Dose: 125 mls/hr Iopamidol (Isovue-300 (61%)) 150 ml IV . DIRECTED PRN PRN Reason: RADIOLOGY EXAM Stop: 12/14/16 08:30 Last Admin: 12/14/16 07:36 Dose: 150 ml Lisinopril (Prinivil) 10 mg PO ONETIME ONE Stop: 12/14/16 18:20 Last Admin: 12/14/16 18:52 Dose: 10 mg Pantoprazole Sodium (Protonix Iv) 80 mg IVPUSH .BOLUS ONE Stop: 12/14/16 10:01 Last Admin: 12/14/16 10:09 Dose: 80 mg Sodium Chloride (Saline Flush) 10 ml FLUSH ONETIME PRN PRN Reason: per radiology protocol Stop: 12/14/16 08:30 Last Admin: 12/14/16 07:33 Dose: 10 ml Sodium Chloride (Saline Flush) 10 ml FLUSH ASDIRECTED PRN PRN Reason: Keep Vein Open Last Admin: 12/14/16 10:10 Dose: 10 ml - Exam Quality Assessment: DVT Prophylaxis General: Alert, Oriented, Cooperative, Mild Distress Lungs: Clear to Auscultation, Normal Respiratory Effort Cardiovascular: Regular Rate, Regular Rhythm, No Murmurs GI/Abdominal Exam: Normal Bowel Sounds, Soft, No Organomegaly, Tender. No: Distended, Guarding, Rigid, Rebound Back Exam: Normal Inspection, Full Range of Motion Extremities: Non-Tender, No Pedal Edema Skin: Warm, Dry, Intact - Problem List Review Problem List Initiated/Reviewed/Updated: Yes - My Orders Last 24 Hours: My Active Orders 12/14/16 10:17 Resuscitation Status Routine 12/14/16 11:01 Patient Status [ADT] Routine Blood Glucose Check, Bedside [RC] QIDACANDBED Communication Order [RC] ASDIRECTED Diabetes Education [RC] .PRN Notify Provider Consults [RC] ASDIRECTED Notify Provider Vital Signs [RC] ASDIRECTED Notify Provider [RC] PRN Oxygen Therapy [RC] PRN Peripheral IV Care [RC] Q6H RT Aerosol Therapy [RC] ASDIRECTED Up With Assistance [RC] ASDIRECTED Vital Signs [RC] Q2H Consult to Physician [CONS] Routine Albuterol [Proventil Neb Soln] 2.5 mg NEB Q4H PRN Dextrose 50% in Water 50 ml IV ONETIME PRN Dextrose [Glutose 15] 15 gm PO ONETIME PRN Docusate Sodium [Colace] 100 mg PO BID PRN HYDROmorphone [Dilaudid] 0.5 mg IVPUSH Q2H PRN Insulin Aspart [NovoLOG] See Protocol SUBCUT QIDACANDBED Magnesium Hydroxide [Milk of Magnesia] 30 ml PO Q12H PRN Ondansetron [Zofran] 4 mg IV Q4H PRN Polyethylene Glycol 3350 [MiraLAX] 17 gm PO DAILY PRN Sodium Chloride 0.9% [Normal Saline] 100 ml Pantoprazole [ProTONIX IV] 80 mg IV 10 mls/hr Sodium Chloride 0.9% [Saline Flush] 10 ml FLUSH ASDIRECTED PRN oxyCODONE 5 mg PO Q4H PRN Peripheral IV Insertion Adult [OM.PC] Routine Sequential Compression Device [OM.PC] Per Unit Routine VTE Pharmacological Contraindications [AST] Per Unit Routine 12/14/16 16:00 Gabapentin [Neurontin] 600 mg PO QID 12/14/16 18:30 amLODIPine [Norvasc] 2.5 mg PO BID 12/14/16 21:00 Oxybutynin 5 mg PO BID Terazosin [Hytrin] 10 mg PO BEDTIME 12/15/16 09:15 Magnesium Oxide 400 mg PO BID 12/15/16 10:00 Magnesium Sulfate/Water [Magnesium Sulfate 2 GM in Water 50 ML] 2 gm Premix Bag 1 bag IV ONETIME Sodium Chloride 0.9% @ 75 MLS/HR(1000ml) Sodium Chloride 0.9% [Normal Saline] 1 ,000 ml IV ASDIRECTED 12/15/16 17:00 HGB [HEMOGLOBIN] [HEME] Stat 12/16/16 05:00 BASIC METABOLIC PANEL,BMP [CHEM] Timed CBC WITH AUTO DIFF [HEME] Timed MAGNESIUM [CHEM] Timed 12/16/16 07:30 GLUCOSE POC LAB TO COLLECT [POC] QIDACANDBED 12/16/16 11:30 GLUCOSE POC LAB TO COLLECT [POC] QIDACANDBED 12/16/16 16:30 GLUCOSE POC LAB TO COLLECT [POC] QIDACANDBED 12/16/16 21:00 GLUCOSE POC LAB TO COLLECT [POC] QIDACANDBED 12/17/16 07:30 GLUCOSE POC LAB TO COLLECT [POC] QIDACANDBED 12/17/16 11:30 GLUCOSE POC LAB TO COLLECT [POC] QIDACANDBED 12/17/16 16:30 GLUCOSE POC LAB TO COLLECT [POC] QIDACANDBED 12/17/16 21:00 GLUCOSE POC LAB TO COLLECT [POC] QIDACANDBED 12/18/16 07:30 GLUCOSE POC LAB TO COLLECT [POC] QIDACANDBED 12/18/16 11:30 GLUCOSE POC LAB TO COLLECT [POC] QIDACANDBED 12/18/16 16:30 GLUCOSE POC LAB TO COLLECT [POC] QIDACANDBED 12/18/16 21:00 GLUCOSE POC LAB TO COLLECT [POC] QIDACANDBED 12/19/16 07:30 GLUCOSE POC LAB TO COLLECT [POC] QIDACANDBED 12/19/16 11:30 GLUCOSE POC LAB TO COLLECT [POC] QIDACANDBED 12/19/16 16:30 GLUCOSE POC LAB TO COLLECT [POC] QIDACANDBED 12/19/16 21:00 GLUCOSE POC LAB TO COLLECT [POC] QIDACANDBED 12/20/16 07:30 GLUCOSE POC LAB TO COLLECT [POC] QIDACANDBED 12/20/16 11:30 GLUCOSE POC LAB TO COLLECT [POC] QIDACANDBED 12/20/16 16:30 GLUCOSE POC LAB TO COLLECT [POC] QIDACANDBED 12/20/16 21:00 GLUCOSE POC LAB TO COLLECT [POC] QIDACANDBED 12/21/16 07:30 GLUCOSE POC LAB TO COLLECT [POC] QIDACANDBED 12/21/16 11:30 GLUCOSE POC LAB TO COLLECT [POC] QIDACANDBED 12/21/16 16:30 GLUCOSE POC LAB TO COLLECT [POC] QIDACANDBED 12/21/16 21:00 GLUCOSE POC LAB TO COLLECT [POC] QIDACANDBED 12/22/16 07:30 GLUCOSE POC LAB TO COLLECT [POC] QIDACANDBED 12/22/16 11:30 GLUCOSE POC LAB TO COLLECT [POC] QIDACANDBED 12/22/16 16:30 GLUCOSE POC LAB TO COLLECT [POC] QIDACANDBED 12/22/16 21:00 GLUCOSE POC LAB TO COLLECT [POC] QIDACANDBED 12/23/16 07:30 GLUCOSE POC LAB TO COLLECT [POC] QIDACANDBED 12/23/16 11:30 GLUCOSE POC LAB TO COLLECT [POC] QIDACANDBED 12/23/16 16:30 GLUCOSE POC LAB TO COLLECT [POC] QIDACANDBED 12/23/16 21:00 GLUCOSE POC LAB TO COLLECT [POC] QIDACANDBED 12/24/16 07:30 GLUCOSE POC LAB TO COLLECT [POC] QIDACANDBED 12/24/16 11:30 GLUCOSE POC LAB TO COLLECT [POC] QIDACANDBED 12/24/16 16:30 GLUCOSE POC LAB TO COLLECT [POC] QIDACANDBED 12/24/16 21:00 GLUCOSE POC LAB TO COLLECT [POC] QIDACANDBED 12/25/16 07:30 GLUCOSE POC LAB TO COLLECT [POC] QIDACANDBED - Plan Plan:: ASSESSMENT AND PLAN HEMOPERITONEUM-abrupt onset of supraumbilical and epigastric abdominal pain earlier this morning. Hemoglobin stable, CT scan shows evidence of a small amount of hemoperitoneum. Most likely cause would be perforated contained ulcer. Improved since admit, less pain, no evidence of active bleeding. -Surgical follow-up per Dr. Prado -Serial hemoglobin levels -Monitor in ICU -Protonix 80 mg bolus given in ED, started on continuous infusion at 8 mg per hour. -Outpatient follow-up with EGD -IV fluids for hydration -Type and cross to hold 4 units of red blood cells -Nothing by mouth TYPE 2 DIABETES MELLITUS-glucose levels stable since admission -Hold glipizide and metformin while nothing by mouth -4 times a day glucometers -Low-dose sliding scale NovoLog MAINTENANCE ISSUES -DVT prophylaxis; SCUDs, hold on anticoagulation given active bleed -GI prophylaxis; Protonix as above -Barraza catheter; not indicated -Nutrition; nothing by mouth -Nicotine dependence; nicotine patch CODE STATUS-FULL CODE ADMISSION STATUS-patient will be admitted to inpatient status, expect at least a 2 night hospital stay for evaluation and management of problems as outlined above. At the time of this admission I do not reasonably expected evaluation and management of this problem will require more than a 96 hour hospital stay. DISPOSITION-anticipate discharge to home after the hospital stay. PRIMARY CARE PROVIDER-[facility]
[2016-12-15] MEDS: Terazosin 5 MG Cap PO SCH (21:20)
[2016-12-16] MEDS: Sodium Chloride 0.9% 1,000 ML IV SCH ×2 (00:48→14:04)
[2016-12-16] MEDS: Sodium Chloride 0.9% 100 ML with Pantoprazole 80 MG IV SCH ×2 (05:52)
[2016-12-16] MEDS: Gabapentin 300 MG Cap PO SCH ×4 (05:53→21:18)
[2016-12-16] MEDS: Insulin Aspart 100 Units/ML 3 ML Pen SUBCUT SCH ×4 (07:37→21:17)
[2016-12-16] MEDS: Oxybutynin 5 MG Tab PO SCH ×2 (09:07→21:19)
[2016-12-16] MEDS: Lisinopril 10 MG Tab PO SCH (09:07)
[2016-12-16] MEDS: Magnesium Oxide 400 MG Tab PO SCH ×2 (09:07→21:19)
[2016-12-16] MEDS: amLODIPine 2.5 MG Tab PO SCH ×2 (09:07→21:36)
--- NOTE | 2016-12-16 09:18 | PCM.PN ---
- General Info Date of Service: 12/16/16 Functional Status: Reports: Pain Controlled, Urinating - Review of Systems General: Denies: Fever, Chills Pulmonary: Reports: No Symptoms Cardiovascular: Reports: No Symptoms Gastrointestinal: Reports: No Symptoms Systems Review Comment:: Mr. Banks has remained stable over the past 24 hours, there is been no evidence of active bleeding and his abdominal pain has entirely resolved. Vital signs have remained stable and he has been afebrile. - Patient Data Vitals - Most Recent: Last Vital Signs Temp 96.5 F 12/16/16 08:00 Pulse 56 L 12/15/16 18:00 Resp 12 12/16/16 08:00 BP 142/53 H 12/16/16 08:00 Pulse Ox 96 12/16/16 08:00 Weight - Most Recent: 257 lb 15.053 oz I&O - Last 24 Hours: Intake & Output 12/15/16 12/16/16 12/16/16 22:59 06:59 14:59 Intake Total 1236 1016 Output Total 600 Balance 1236 416 Lab Results Last 24 Hours: Laboratory Results - last 24 hr 12/15/16 12/16/16 12/16/16 Range/Units 16:58 05:40 05:40 WBC 10.9 (4.5-11.0) K/uL RBC 4.17 L (4.30-5.90) M/uL Hgb 12.5 12.1 (12.0-15.0) g/dL Hct 36.0 L (40.0-54.0) % MCV 86 (80-98) fL MCH 29 (27-31) pg MCHC 34 (32-36) % Plt Count 300 (150-400) K/uL Neut % (Auto) 66 (36-66) % Lymph % (Auto) 22 L (24-44) % [place] % (Auto) 10 H (2-6) % Eos % (Auto) 3 (2-4) % Baso % (Auto) 0 (0-1) % Sodium 141 (140-148) mmol/L Potassium 3.6 (3.6-5.2) mmol/L Chloride 107 (100-108) mmol/L Carbon Dioxide 27 (21-32) mmol/L Anion Gap 6.8 (5.0-14.0) mmol/L BUN 11 (7-18) mg/dL Creatinine 0.8 (0.8-1.3) mg/dL Est Cr Clr Drug Dosing 87.66 mL/min Estimated GFR (MDRD) > 60 (>60) Glucose 132 H (74-106) mg/dL Calcium 7.9 L (8.5-10.1) mg/dL Magnesium 2.0 (1.8-2.4) mg/dL Med Orders - Current: Current Medications Albuterol (Proventil Neb Soln) 2.5 mg NEB Q4H PRN PRN Reason: Shortness Of Breath/wheezing Amlodipine Besylate (Norvasc) 2.5 mg PO BID [facility] Last Admin: 12/16/16 09:07 Dose: 2.5 mg Dextrose (Glutose 15) 15 gm PO ONETIME PRN PRN Reason: Hypoglycemia Dextrose/Water (Dextrose 50% In Water) 50 ml IV ONETIME PRN PRN Reason: Hypoglycemia Docusate Sodium (Colace) 100 mg PO BID PRN PRN Reason: Constipation Gabapentin (Neurontin) 600 mg PO QID [facility] Last Admin: 12/16/16 05:53 Dose: 600 mg Hydromorphone HCl (Dilaudid) 0.5 mg IVPUSH Q2H PRN PRN Reason: Pain Last Admin: 12/15/16 01:24 Dose: 0.5 mg Pantoprazole Sodium 80 mg/ (Sodium Chloride) 100 mls @ 10 mls/hr IV .Q10H [facility] Last Admin: 12/16/16 05:52 Dose: 10 mls/hr Sodium Chloride (Normal Saline) 1,000 mls @ 75 mls/hr IV ASDIRECTED [facility] Last Admin: 12/16/16 00:48 Dose: 75 mls/hr Insulin Aspart (Novolog) 0 unit SUBCUT QIDACANDBED [facility] PRN Reason: Protocol Last Admin: 12/16/16 07:37 Dose: Not Given Lisinopril (Prinivil) 10 mg PO DAILY [facility] Last Admin: 12/16/16 09:07 Dose: 10 mg Lovastatin (Mevacor) 20 mg PO BEDTIME [facility] Last Admin: 12/15/16 21:20 Dose: 20 mg Magnesium Hydroxide (Milk Of Magnesia) 30 ml PO Q12H PRN PRN Reason: Constipation Magnesium Oxide (Magnesium Oxide) 400 mg PO BID [facility] Last Admin: 12/16/16 09:07 Dose: 400 mg Ondansetron HCl (Zofran) 4 mg IV Q4H PRN PRN Reason: Nausea/Vomiting Oxybutynin Chloride (Oxybutynin) 5 mg PO BID [facility] Last Admin: 12/16/16 09:07 Dose: 5 mg Oxycodone HCl (Oxycodone) 5 mg PO Q4H PRN PRN Reason: Pain (moderate 4-6) Last Admin: 12/15/16 21:19 Dose: 5 mg Pantoprazole Sodium (Protonix Iv) 40 mg IVPUSH Q12H [facility] Sodium Chloride (Saline Flush) 10 ml FLUSH ASDIRECTED PRN PRN Reason: Keep Vein Open Terazosin HCl (Hytrin) 10 mg PO BEDTIME [facility] Last Admin: 12/15/16 21:20 Dose: 10 mg Discontinued Medications Amlodipine Besylate (Norvasc) Confirm Administered Dose 5 mg .ROUTE .STK-MED ONE Stop: 12/14/16 18:48 Last Admin: 12/14/16 18:52 Dose: Not Given Hydromorphone HCl (Dilaudid) 0.5 mg IVPUSH ONETIME ONE Stop: 12/14/16 06:08 Last Admin: 12/14/16 06:15 Dose: 0.5 mg Sodium Chloride (Normal Saline) 1,000 mls @ 150 mls/hr IV ASDIRECTED [facility] Last Admin: 12/14/16 06:15 Dose: 150 mls/hr Sodium Chloride (Normal Saline) 85 mls @ 3.5 mls/sec IV ASDIRECTED [facility] Stop: 12/14/16 08:30 Last Admin: 12/14/16 07:36 Dose: 3.5 mls/sec Pantoprazole Sodium 80 mg/ (Sodium Chloride) 100 mls @ 10 mls/hr IV .Q10H [facility] Last Admin: 12/14/16 10:10 Dose: 10 mls/hr Sodium Chloride (Normal Saline) 1,000 mls @ 125 mls/hr IV ASDIRECTED [facility] Last Admin: 12/15/16 03:49 Dose: 125 mls/hr Magnesium Sulfate 2 gm/ Premix 50 mls @ 25 mls/hr IV ONETIME ONE Stop: 12/15/16 11:59 Last Admin: 12/15/16 10:04 Dose: 25 mls/hr Iopamidol (Isovue-300 (61%)) 150 ml IV . DIRECTED PRN PRN Reason: RADIOLOGY EXAM Stop: 12/14/16 08:30 Last Admin: 12/14/16 07:36 Dose: 150 ml Lisinopril (Prinivil) 10 mg PO ONETIME ONE Stop: 12/14/16 18:20 Last Admin: 12/14/16 18:52 Dose: 10 mg Pantoprazole Sodium (Protonix Iv) 80 mg IVPUSH .BOLUS ONE Stop: 12/14/16 10:01 Last Admin: 12/14/16 10:09 Dose: 80 mg Polyethylene Glycol (Miralax) 17 gm PO DAILY PRN PRN Reason: Constipation Sodium Chloride (Saline Flush) 10 ml FLUSH ONETIME PRN PRN Reason: per radiology protocol Stop: 12/14/16 08:30 Last Admin: 12/14/16 07:33 Dose: 10 ml Sodium Chloride (Saline Flush) 10 ml FLUSH ASDIRECTED PRN PRN Reason: Keep Vein Open Last Admin: 12/14/16 10:10 Dose: 10 ml - Exam Quality Assessment: DVT Prophylaxis General: Alert, Oriented, Cooperative, No Acute Distress Lungs: Clear to Auscultation, Normal Respiratory Effort Cardiovascular: Regular Rate, Regular Rhythm, No Murmurs GI/Abdominal Exam: Normal Bowel Sounds, Soft, Non-Tender, No Organomegaly, No Distention Extremities: Non-Tender, No Pedal Edema Skin: Warm, Dry - Problem List Review Problem List Initiated/Reviewed/Updated: Yes - My Orders Last 24 Hours: My Active Orders 12/15/16 09:15 Magnesium Oxide 400 mg PO BID 12/15/16 10:00 Sodium Chloride 0.9% [Normal Saline] 1,000 ml IV ASDIRECTED 12/16/16 09:13 Vital Signs [RC] Q4H 12/16/16 09:15 Pantoprazole [ProTONIX IV] 40 mg IVPUSH Q12H 12/17/16 05:11 HGB [HEMOGLOBIN] [HEME] AM 12/17/16 07:30 GLUCOSE POC LAB TO COLLECT [POC] QIDACANDBED 12/17/16 11:30 GLUCOSE POC LAB TO COLLECT [POC] QIDACANDBED 12/17/16 16:30 GLUCOSE POC LAB TO COLLECT [POC] QIDACANDBED 12/17/16 21:00 GLUCOSE POC LAB TO COLLECT [POC] QIDACANDBED 12/18/16 07:30 GLUCOSE POC LAB TO COLLECT [POC] QIDACANDBED 12/18/16 11:30 GLUCOSE POC LAB TO COLLECT [POC] QIDACANDBED 12/18/16 16:30 GLUCOSE POC LAB TO COLLECT [POC] QIDACANDBED 12/18/16 21:00 GLUCOSE POC LAB TO COLLECT [POC] QIDACANDBED 12/19/16 07:30 GLUCOSE POC LAB TO COLLECT [POC] QIDACANDBED 12/19/16 11:30 GLUCOSE POC LAB TO COLLECT [POC] QIDACANDBED 12/19/16 16:30 GLUCOSE POC LAB TO COLLECT [POC] QIDACANDBED 12/19/16 21:00 GLUCOSE POC LAB TO COLLECT [POC] QIDACANDBED 12/20/16 07:30 GLUCOSE POC LAB TO COLLECT [POC] QIDACANDBED 12/20/16 11:30 GLUCOSE POC LAB TO COLLECT [POC] QIDACANDBED 12/20/16 16:30 GLUCOSE POC LAB TO COLLECT [POC] QIDACANDBED 12/20/16 21:00 GLUCOSE POC LAB TO COLLECT [POC] QIDACANDBED 12/21/16 07:30 GLUCOSE POC LAB TO COLLECT [POC] QIDACANDBED 12/21/16 11:30 GLUCOSE POC LAB TO COLLECT [POC] QIDACANDBED 12/21/16 16:30 GLUCOSE POC LAB TO COLLECT [POC] QIDACANDBED 12/21/16 21:00 GLUCOSE POC LAB TO COLLECT [POC] QIDACANDBED 12/22/16 07:30 GLUCOSE POC LAB TO COLLECT [POC] QIDACANDBED 12/22/16 11:30 GLUCOSE POC LAB TO COLLECT [POC] QIDACANDBED 12/22/16 16:30 GLUCOSE POC LAB TO COLLECT [POC] QIDACANDBED 12/22/16 21:00 GLUCOSE POC LAB TO COLLECT [POC] QIDACANDBED 12/23/16 07:30 GLUCOSE POC LAB TO COLLECT [POC] QIDACANDBED 12/23/16 11:30 GLUCOSE POC LAB TO COLLECT [POC] QIDACANDBED 12/23/16 16:30 GLUCOSE POC LAB TO COLLECT [POC] QIDACANDBED 12/23/16 21:00 GLUCOSE POC LAB TO COLLECT [POC] QIDACANDBED 12/24/16 07:30 GLUCOSE POC LAB TO COLLECT [POC] QIDACANDBED 12/24/16 11:30 GLUCOSE POC LAB TO COLLECT [POC] QIDACANDBED 12/24/16 16:30 GLUCOSE POC LAB TO COLLECT [POC] QIDACANDBED 12/24/16 21:00 GLUCOSE POC LAB TO COLLECT [POC] QIDACANDBED 12/25/16 07:30 GLUCOSE POC LAB TO COLLECT [POC] QIDACANDBED - Plan Plan:: ASSESSMENT AND PLAN HEMOPERITONEUM-abrupt onset of supraumbilical and epigastric abdominal pain earlier this morning. Hemoglobin stable, CT scan shows evidence of a small amount of hemoperitoneum. Most likely cause would be perforated contained ulcer. Improved since admit, pain has resolved no evidence of active bleeding. -Surgical follow-up per Dr. Prado -Serial hemoglobin levels -Monitor in ICU -Protonix 40 mg IV every 12 hours -Outpatient follow-up with EGD -IV fluids for hydration -Nothing by mouth TYPE 2 DIABETES MELLITUS-glucose levels stable since admission -Hold glipizide and metformin while nothing by mouth -4 times a day glucometers -Low-dose sliding scale [employer] MAINTENANCE ISSUES -DVT prophylaxis; SCUDs, hold on anticoagulation given active bleed -GI prophylaxis; Protonix as above -Barraza catheter; not indicated -Nutrition; nothing by mouth -Nicotine dependence; nicotine patch CODE STATUS-FULL CODE ADMISSION STATUS-patient will be admitted to inpatient status, expect at least a 2 night hospital stay for evaluation and management of problems as outlined above. At the time of this admission I do not reasonably expected evaluation and management of this problem will require more than a 96 hour hospital stay. DISPOSITION-anticipate discharge to home after the hospital stay. PRIMARY CARE PROVIDER-[place] [facility]
[2016-12-16] MEDS: Pantoprazole 40 MG Vial IVPUSH SCH ×2 (09:43→21:54)
--- NOTE | 2016-12-16 12:03 | PCM.CONSN ---
- General Info Functional Status: Reports: Pain Controlled, Ambulating, Urinating - Review of Systems General: Reports: No Symptoms HEENT: Reports: No Symptoms Pulmonary: Reports: No Symptoms Cardiovascular: Reports: No Symptoms Gastrointestinal: Reports: No Symptoms, Flatus. Denies: Abdominal Pain Genitourinary: Reports: No Symptoms Musculoskeletal: Reports: No Symptoms Skin: Reports: No Symptoms Neurological: Reports: No Symptoms Psychiatric: Reports: No Symptoms - Patient Data Vitals - Most Recent: Last Vital Signs Temp 96.5 F 12/16/16 08:00 Pulse 56 L 12/15/16 18:00 Resp 12 12/16/16 08:00 BP 142/53 H 12/16/16 08:00 Pulse Ox 96 12/16/16 08:00 Weight - Most Recent: 257 lb 15.053 oz I&O - Last 24 Hours: Intake & Output 12/15/16 12/16/16 12/16/16 22:59 06:59 14:59 Intake Total 1236 1016 360 Output Total 600 Balance 1236 416 360 Lab Results Last 24 Hours: Laboratory Results - last 24 hr 12/15/16 12/16/16 12/16/16 Range/Units 16:58 05:40 05:40 WBC 10.9 (4.5-11.0) K/uL RBC 4.17 L (4.30-5.90) M/uL Hgb 12.5 12.1 (12.0-15.0) g/dL Hct 36.0 L (40.0-54.0) % MCV 86 (80-98) fL MCH 29 (27-31) pg MCHC 34 (32-36) % Plt Count 300 (150-400) K/uL Neut % (Auto) 66 (36-66) % Lymph % (Auto) 22 L (24-44) % Sibley % (Auto) 10 H (2-6) % Eos % (Auto) 3 (2-4) % Baso % (Auto) 0 (0-1) % Sodium 141 (140-148) mmol/L Potassium 3.6 (3.6-5.2) mmol/L Chloride 107 (100-108) mmol/L Carbon Dioxide 27 (21-32) mmol/L Anion Gap 6.8 (5.0-14.0) mmol/L BUN 11 (7-18) mg/dL Creatinine 0.8 (0.8-1.3) mg/dL Est Cr Clr Drug Dosing 87.66 mL/min Estimated GFR (MDRD) > 60 (>60) Glucose 132 H (74-106) mg/dL Calcium 7.9 L (8.5-10.1) mg/dL Magnesium 2.0 (1.8-2.4) mg/dL Med Orders - Current: Current Medications Albuterol (Proventil Neb Soln) 2.5 mg NEB Q4H PRN PRN Reason: Shortness Of Breath/wheezing Amlodipine Besylate (Norvasc) 2.5 mg PO BID [facility] Last Admin: 12/16/16 09:07 Dose: 2.5 mg Dextrose (Glutose 15) 15 gm PO ONETIME PRN PRN Reason: Hypoglycemia Dextrose/Water (Dextrose 50% In Water) 50 ml IV ONETIME PRN PRN Reason: Hypoglycemia Docusate Sodium (Colace) 100 mg PO BID PRN PRN Reason: Constipation Gabapentin (Neurontin) 600 mg PO QID [facility] Last Admin: 12/16/16 09:48 Dose: 600 mg Hydromorphone HCl (Dilaudid) 0.5 mg IVPUSH Q2H PRN PRN Reason: Pain Last Admin: 12/15/16 01:24 Dose: 0.5 mg Sodium Chloride (Normal Saline) 1,000 mls @ 75 mls/hr IV ASDIRECTED [facility] Last Admin: 12/16/16 00:48 Dose: 75 mls/hr Insulin Aspart (Novolog) 0 unit SUBCUT QIDACANDBED [facility] PRN Reason: Protocol Last Admin: 12/16/16 07:37 Dose: Not Given Lisinopril (Prinivil) 10 mg PO DAILY [facility] Last Admin: 12/16/16 09:07 Dose: 10 mg Lovastatin (Mevacor) 20 mg PO BEDTIME [facility] Last Admin: 12/15/16 21:20 Dose: 20 mg Magnesium Hydroxide (Milk Of Magnesia) 30 ml PO Q12H PRN PRN Reason: Constipation Magnesium Oxide (Magnesium Oxide) 400 mg PO BID [facility] Last Admin: 12/16/16 09:07 Dose: 400 mg Ondansetron HCl (Zofran) 4 mg IV Q4H PRN PRN Reason: Nausea/Vomiting Oxybutynin Chloride (Oxybutynin) 5 mg PO BID [facility] Last Admin: 12/16/16 09:07 Dose: 5 mg Oxycodone HCl (Oxycodone) 5 mg PO Q4H PRN PRN Reason: Pain (moderate 4-6) Last Admin: 12/15/16 21:19 Dose: 5 mg Pantoprazole Sodium (Protonix Iv) 40 mg IVPUSH Q12H [facility] Last Admin: 12/16/16 09:43 Dose: 40 mg Sodium Chloride (Saline Flush) 10 ml FLUSH ASDIRECTED PRN PRN Reason: Keep Vein Open Terazosin HCl (Hytrin) 10 mg PO BEDTIME [facility] Last Admin: 12/15/16 21:20 Dose: 10 mg Discontinued Medications Amlodipine Besylate (Norvasc) Confirm Administered Dose 5 mg .ROUTE .STK-MED ONE Stop: 12/14/16 18:48 Last Admin: 12/14/16 18:52 Dose: Not Given Hydromorphone HCl (Dilaudid) 0.5 mg IVPUSH ONETIME ONE Stop: 12/14/16 06:08 Last Admin: 12/14/16 06:15 Dose: 0.5 mg Sodium Chloride (Normal Saline) 1,000 mls @ 150 mls/hr IV ASDIRECTED [facility] Last Admin: 12/14/16 06:15 Dose: 150 mls/hr Sodium Chloride (Normal Saline) 85 mls @ 3.5 mls/sec IV ASDIRECTED [facility] Stop: 12/14/16 08:30 Last Admin: 12/14/16 07:36 Dose: 3.5 mls/sec Pantoprazole Sodium 80 mg/ (Sodium Chloride) 100 mls @ 10 mls/hr IV .Q10H [facility] Last Admin: 12/14/16 10:10 Dose: 10 mls/hr Pantoprazole Sodium 80 mg/ (Sodium Chloride) 100 mls @ 10 mls/hr IV .Q10H [facility] Last Admin: 12/16/16 05:52 Dose: 10 mls/hr Sodium Chloride (Normal Saline) 1,000 mls @ 125 mls/hr IV ASDIRECTED [facility] Last Admin: 12/15/16 03:49 Dose: 125 mls/hr Magnesium Sulfate 2 gm/ Premix 50 mls @ 25 mls/hr IV ONETIME ONE Stop: 12/15/16 11:59 Last Admin: 12/15/16 10:04 Dose: 25 mls/hr Iopamidol (Isovue-300 (61%)) 150 ml IV . DIRECTED PRN PRN Reason: RADIOLOGY EXAM Stop: 12/14/16 08:30 Last Admin: 12/14/16 07:36 Dose: 150 ml Lisinopril (Prinivil) 10 mg PO ONETIME ONE Stop: 12/14/16 18:20 Last Admin: 12/14/16 18:52 Dose: 10 mg Pantoprazole Sodium (Protonix Iv) 80 mg IVPUSH .BOLUS ONE Stop: 12/14/16 10:01 Last Admin: 12/14/16 10:09 Dose: 80 mg Polyethylene Glycol (Miralax) 17 gm PO DAILY PRN PRN Reason: Constipation Sodium Chloride (Saline Flush) 10 ml FLUSH ONETIME PRN PRN Reason: per radiology protocol Stop: 12/14/16 08:30 Last Admin: 12/14/16 07:33 Dose: 10 ml Sodium Chloride (Saline Flush) 10 ml FLUSH ASDIRECTED PRN PRN Reason: Keep Vein Open Last Admin: 12/14/16 10:10 Dose: 10 ml - Exam GI/Abdominal Exam: Normal Bowel Sounds, Soft, Non-Tender Consult PN Assessment/Plan Procedures: Procedures ASSAY OF LACTIC ACID (04/17/14) ASSAY OF LIPASE (04/17/14) ASSAY OF MAGNESIUM (04/17/14) ASSAY OF NATRIURETIC PEPTIDE (04/17/14) ASSAY OF PHOSPHORUS (04/17/14) CHEST X-RAY 2VW FRONTAL&LATL (04/17/14) COMPLETE CBC AUTOMATED (04/17/14) COMPLETE CBC W/AUTO DIFF WBC (04/17/14) COMPREHEN METABOLIC PANEL (04/17/14) CT ABD & PELV W/CONTRAST (04/17/14) ELECTROCARDIOGRAM REPORT (04/17/14) ELECTROCARDIOGRAM TRACING (04/17/14) EMERGENCY DEPT VISIT (06/28/15) EMERGENCY DEPT VISIT (06/28/15) EMERGENCY DEPT VISIT (04/17/14) EMERGENCY DEPT VISIT (04/17/14) EMERGENCY DEPT VISIT (07/09/13) EMERGENCY DEPT VISIT (07/09/13) GLUCOSE BLOOD TEST (04/17/14) HYDRATE IV INFUSION ADD-ON (04/17/14) IIV4 VACC NO PRSV 0.5 ML IM (04/17/14) INCISE EXTERNAL HEMORRHOID (06/28/15) INSERT TEMP BLADDER CATH (06/28/15) MEASURE BLOOD OXYGEN LEVEL (04/17/14) METABOLIC PANEL TOTAL CA (04/17/14) ROUTINE VENIPUNCTURE (04/17/14) THER/PROPH/DIAG INJ IV PUSH (06/28/15) TISSUE EXAM BY PATHOLOGIST (04/17/14) TISSUE EXAM BY PATHOLOGIST (04/17/14) TISSUE EXAM BY PATHOLOGIST (04/17/14) TX/PRO/DX INJ NEW DRUG ADDON (04/17/14) TX/PRO/DX 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 Problem List Initiated/Reviewed/Updated: Yes My Orders Last 24 Hours: My Active Orders 12/16/16 10:21 Communication Order [RC] ASDIRECTED 12/16/16 Lunch Clear Liquid Diet [DIET] Feed.
[2016-12-16] MEDS: Terazosin 5 MG Cap PO SCH (21:36)
[2016-12-17] MEDS: Sodium Chloride 0.9% 1,000 ML IV SCH (03:42)
[2016-12-17] MEDS: Gabapentin 300 MG Cap PO SCH ×2 (05:57→09:34)
--- NOTE | 2016-12-17 06:42 | PCM.CONSN ---
- General Info Date of Service: 12/17/16 Admission Dx/Problem (Free Text): Epigastric pain. Functional Status: Reports: Pain Controlled, Tolerating Diet, Ambulating, Urinating - Review of Systems General: Reports: No Symptoms HEENT: Reports: No Symptoms Pulmonary: Reports: No Symptoms Cardiovascular: Reports: No Symptoms Gastrointestinal: Reports: No Symptoms Genitourinary: Reports: No Symptoms Musculoskeletal: Reports: No Symptoms Skin: Reports: No Symptoms Neurological: Reports: No Symptoms Psychiatric: Reports: No Symptoms - Patient Data Vitals - Most Recent: Last Vital Signs Temp 97.7 F 12/17/16 03:32 Pulse 55 L 12/17/16 03:32 Resp 16 12/17/16 03:32 BP 143/60 H 12/17/16 03:32 Pulse Ox 96 12/17/16 03:32 Weight - Most Recent: 257 lb 15.053 oz I&O - Last 24 Hours: Intake & Output 12/16/16 12/16/16 12/17/16 14:59 22:59 06:59 Intake Total 770 610 4483 Output Total 1325 Balance 720 240 642 Lab Results Last 24 Hours: Laboratory Results - last 24 hr 12/17/16 Range/Units 05:11 Hgb 11.5 L (12.0-15.0) g/dL Med Orders - Current: Current Medications Albuterol (Proventil Neb Soln) 2.5 mg NEB Q4H PRN PRN Reason: Shortness Of Breath/wheezing Amlodipine Besylate (Norvasc) 2.5 mg PO BID [facility] Last Admin: 12/16/16 21:36 Dose: 2.5 mg Dextrose (Glutose 15) 15 gm PO ONETIME PRN PRN Reason: Hypoglycemia Dextrose/Water (Dextrose 50% In Water) 50 ml IV ONETIME PRN PRN Reason: Hypoglycemia Docusate Sodium (Colace) 100 mg PO BID PRN PRN Reason: Constipation Gabapentin (Neurontin) 600 mg PO QID [facility] Last Admin: 12/17/16 05:57 Dose: 600 mg Hydromorphone HCl (Dilaudid) 0.5 mg IVPUSH Q2H PRN PRN Reason: Pain Last Admin: 12/15/16 01:24 Dose: 0.5 mg Sodium Chloride (Normal Saline) 1,000 mls @ 75 mls/hr IV ASDIRECTED [facility] Last Admin: 12/17/16 03:42 Dose: 75 mls/hr Insulin Aspart (Novolog) 0 unit SUBCUT QIDACANDBED [facility] PRN Reason: Protocol Last Admin: 12/16/16 21:17 Dose: 1 unit Lisinopril (Prinivil) 10 mg PO DAILY [facility] Last Admin: 12/16/16 09:07 Dose: 10 mg Lovastatin (Mevacor) 20 mg PO BEDTIME [facility] Last Admin: 12/16/16 21:23 Dose: 20 mg Magnesium Hydroxide (Milk Of Magnesia) 30 ml PO Q12H PRN PRN Reason: Constipation Magnesium Oxide (Magnesium Oxide) 400 mg PO BID [facility] Last Admin: 12/16/16 21:19 Dose: 400 mg Ondansetron HCl (Zofran) 4 mg IV Q4H PRN PRN Reason: Nausea/Vomiting Oxybutynin Chloride (Oxybutynin) 5 mg PO BID [facility] Last Admin: 12/16/16 21:19 Dose: 5 mg Oxycodone HCl (Oxycodone) 5 mg PO Q4H PRN PRN Reason: Pain (moderate 4-6) Last Admin: 12/15/16 21:19 Dose: 5 mg Pantoprazole Sodium (Protonix Iv) 40 mg IVPUSH Q12H [facility] Last Admin: 12/16/16 21:54 Dose: 40 mg Sodium Chloride (Saline Flush) 10 ml FLUSH ASDIRECTED PRN PRN Reason: Keep Vein Open Terazosin HCl (Hytrin) 10 mg PO BEDTIME [facility] Last Admin: 12/16/16 21:36 Dose: 10 mg Discontinued Medications Amlodipine Besylate (Norvasc) Confirm Administered Dose 5 mg .ROUTE .STK-MED ONE Stop: 12/14/16 18:48 Last Admin: 12/14/16 18:52 Dose: Not Given Hydromorphone HCl (Dilaudid) 0.5 mg IVPUSH ONETIME ONE Stop: 12/14/16 06:08 Last Admin: 12/14/16 06:15 Dose: 0.5 mg Sodium Chloride (Normal Saline) 1,000 mls @ 150 mls/hr IV ASDIRECTED [facility] Last Admin: 12/14/16 06:15 Dose: 150 mls/hr Sodium Chloride (Normal Saline) 85 mls @ 3.5 mls/sec IV ASDIRECTED [facility] Stop: 12/14/16 08:30 Last Admin: 12/14/16 07:36 Dose: 3.5 mls/sec Pantoprazole Sodium 80 mg/ (Sodium Chloride) 100 mls @ 10 mls/hr IV .Q10H [facility] Last Admin: 12/14/16 10:10 Dose: 10 mls/hr Pantoprazole Sodium 80 mg/ (Sodium Chloride) 100 mls @ 10 mls/hr IV .Q10H [facility] Last Admin: 12/16/16 05:52 Dose: 10 mls/hr Sodium Chloride (Normal Saline) 1,000 mls @ 125 mls/hr IV ASDIRECTED [facility] Last Admin: 12/15/16 03:49 Dose: 125 mls/hr Magnesium Sulfate 2 gm/ Premix 50 mls @ 25 mls/hr IV ONETIME ONE Stop: 12/15/16 11:59 Last Admin: 12/15/16 10:04 Dose: 25 mls/hr Iopamidol (Isovue-300 (61%)) 150 ml IV . DIRECTED PRN PRN Reason: RADIOLOGY EXAM Stop: 12/14/16 08:30 Last Admin: 12/14/16 07:36 Dose: 150 ml Lisinopril (Prinivil) 10 mg PO ONETIME ONE Stop: 12/14/16 18:20 Last Admin: 12/14/16 18:52 Dose: 10 mg Pantoprazole Sodium (Protonix Iv) 80 mg IVPUSH .BOLUS ONE Stop: 12/14/16 10:01 Last Admin: 12/14/16 10:09 Dose: 80 mg Polyethylene Glycol (Miralax) 17 gm PO DAILY PRN PRN Reason: Constipation Sodium Chloride (Saline Flush) 10 ml FLUSH ONETIME PRN PRN Reason: per radiology protocol Stop: 12/14/16 08:30 Last Admin: 12/14/16 07:33 Dose: 10 ml Sodium Chloride (Saline Flush) 10 ml FLUSH ASDIRECTED PRN PRN Reason: Keep Vein Open Last Admin: 12/14/16 10:10 Dose: 10 ml - Exam General: Alert, Oriented, Cooperative, No Acute Distress Lungs: Clear to Auscultation, Normal Respiratory Effort Cardiovascular: Regular Rate, Regular Rhythm GI/Abdominal Exam: Normal Bowel Sounds, Soft, Non-Tender Consult PN Assessment/Plan Procedures: Procedures ASSAY OF LACTIC ACID (04/17/14) ASSAY OF LIPASE (04/17/14) ASSAY OF MAGNESIUM (04/17/14) ASSAY OF NATRIURETIC PEPTIDE (04/17/14) ASSAY OF PHOSPHORUS (04/17/14) CHEST X-RAY 2VW FRONTAL&LATL (04/17/14) COMPLETE CBC AUTOMATED (04/17/14) COMPLETE CBC W/AUTO DIFF WBC (04/17/14) COMPREHEN METABOLIC PANEL (04/17/14) CT ABD & PELV W/CONTRAST (04/17/14) ELECTROCARDIOGRAM REPORT (04/17/14) ELECTROCARDIOGRAM TRACING (04/17/14) EMERGENCY DEPT VISIT (06/28/15) EMERGENCY DEPT VISIT (06/28/15) EMERGENCY DEPT VISIT (04/17/14) EMERGENCY DEPT VISIT (04/17/14) EMERGENCY DEPT VISIT (07/09/13) EMERGENCY DEPT VISIT (07/09/13) GLUCOSE BLOOD TEST (04/17/14) HYDRATE IV INFUSION ADD-ON (04/17/14) IIV4 VACC NO PRSV 0.5 ML IM (04/17/14) INCISE EXTERNAL HEMORRHOID (06/28/15) INSERT TEMP BLADDER CATH (06/28/15) MEASURE BLOOD OXYGEN LEVEL (04/17/14) METABOLIC PANEL TOTAL CA (04/17/14) ROUTINE VENIPUNCTURE (04/17/14) THER/PROPH/DIAG INJ IV PUSH (06/28/15) TISSUE EXAM BY PATHOLOGIST (04/17/14) TISSUE EXAM BY PATHOLOGIST (04/17/14) TISSUE EXAM BY PATHOLOGIST (04/17/14) TX/PRO/DX INJ NEW DRUG ADDON (04/17/14) TX/PRO/DX INJ SAME DRUG 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 Problem List Initiated/Reviewed/Updated: Yes My Orders Last 24 Hours: My Active Orders 12/16/16 10:21 Communication Order [RC] ASDIRECTED 12/16/16 Dinner Full Liquid Diet [DIET] 12/17/16 06:35 Communication Order [RC] ROUTINE 12/17/16 Breakfast Regular Diet [DIET] Plan: Regular diet. EGD two weeks from tomorrow.
[2016-12-17] MEDS: Insulin Aspart 100 Units/ML 3 ML Pen SUBCUT SCH ×2 (07:49→12:01)
[2016-12-17] MEDS: Magnesium Oxide 400 MG Tab PO SCH (09:31)
[2016-12-17] MEDS: amLODIPine 2.5 MG Tab PO SCH (09:32)
[2016-12-17] MEDS: Oxybutynin 5 MG Tab PO SCH (09:33)
[2016-12-17] MEDS: Lisinopril 10 MG Tab PO SCH (09:33)
[2016-12-17] MEDS: Pantoprazole 40 MG Vial IVPUSH SCH (09:44)
[2016-12-17 11:09] VITALS: BP 165/59
--- NOTE | 2016-12-17 14:17 | PCM.DCSUM1 ---
Discharge Summary - Hospital Course Brief History: Mr. Banks is a 71-year-old gentleman who was admitted through the emergency department with severe abdominal pain secondary to hemoperitoneum and probable perforated intestinal ulcer. - Discharge Data Discharge Date: 12/17/16 Discharge Disposition: Home, Self-Care 01 Condition: Fair - Discharge Diagnosis/Problem(s) (1) Perforated ulcer of intestine SNOMED Code(s): 525373251 ICD Code: K63.1 - PERFORATION OF INTESTINE (NONTRAUMATIC) Status: Acute Current Visit: Yes (2) Hemoperitoneum SNOMED Code(s): 305406097 ICD Code: K66.1 - HEMOPERITONEUM Status: Acute Current Visit: Yes (3) Type 2 diabetes mellitus SNOMED Code(s): 66718678 ICD Code: E11.9 - TYPE 2 DIABETES MELLITUS WITHOUT COMPLICATIONS Status: Chronic Current Visit: No - Patient Summary/Data Consults: Consultations 12/14/16 11:01 Consult to Physician [CONS] Routine Consulting Provider: Georges Prado Courtesy Call Completed to Consulting Physician: Yes Reason for Consult: Hemoperitoneum Hospital Course: Mr. Banks is a 71-year-old gentleman who developed abrupt onset of severe epigastric abdominal pain on the morning of admission. His white blood cell count was modestly elevated, he was afebrile and hemodynamically stable. CT scan of the abdomen showed a small amount of hemoperitoneum in the upper abdomen. He was seen and evaluated by Dr. Prado for surgical consult, there was no free air in the abdomen and he was felt to up at a probable contained intestinal ulcer perforation with resultant bleeding. He was admitted to the intensive care unit for monitoring. IV fluids were initiated for hydration and he was kept nothing by mouth. Serial hemoglobin levels were obtained and remained stable throughout the hospitalization with no further evidence of active bleeding. He was given pain medication and antiemetic therapy as needed. He does have a known history of diabetes mellitus his oral hypoglycemic medications were held, serial glucose levels were obtained and he was treated with sliding scale NovoLog. Pain gradually resolved over the next few days, initially was started on clear liquid diet and then advanced to a regular diet prior to discharge. He initially was treated with an 80 mg bolus of Protonix followed by a continuous infusion of Protonix for a period of 48 hours. This was transitioned to Protonix 40 mg IV twice daily. On discharge he will be on Protonix 40 mg by mouth twice daily for 2 weeks and once daily thereafter. He will return to the emergency department immediately if he knows any recurrence of his abdominal pain. Activity will be as tolerated and he will be on a soft low residue diet. He is encouraged to avoid acidic foods including coffee and caffeine, stop all chewing tobacco use, and avoid alcohol use. He's also been instructed to avoid use of any nonsteroidal medications. Follow-up appointment will be scheduled with Dr. Lu within one week. EGD will be scheduled with Dr. Prado for January 01. - Patient Instructions Diet: GI Soft/Low Residue/Low Fiber Activity: As Tolerated Other/Special Instructions: Please schedule follow-up appointment with Dr. Lu within one week. Please schedule EGD with Dr. Prado for January 01. - Discharge Plan Prescriptions/Med Rec: Pantoprazole Sodium [Protonix] 40 mg PO BID #30 tablet. Home Medications: Home Meds Lisinopril [Prinivil] 10 mg PO DAILY 07/09/13 [History] Lovastatin [Mevacor] 20 mg PO BEDTIME 07/09/13 [History] Oxybutynin Chloride [Ditropan Xl] 5 mg PO BID 07/09/13 [History] Terazosin HCl [Terazosin] 10 mg PO BEDTIME 07/09/13 [History] amLODIPine [Norvasc] 2.5 mg PO BID 07/09/13 [History] glipiZIDE [Glucotrol] 2.5 mg PO BIDAC 07/09/13 [History] metFORMIN HCl [Fortamet] 1,000 mg PO BIDAC 07/09/13 [History] Gabapentin [Neurontin] 600 mg PO QID 12/14/16 [History] Pantoprazole Sodium [Protonix] 40 mg PO BID #30 tablet. 12/17/16 [Rx] Patient Handouts: Food Choices for Peptic Ulcer Disease Referrals: Faizan Lu MD [Physician] - - Patient Data Vitals - Most Recent: Last Vital Signs Temp 98.3 F 12/17/16 11:08 Pulse 62 12/17/16 11:08 Resp 15 12/17/16 11:08 BP 165/59 H 12/17/16 11:08 Pulse Ox 96 12/17/16 11:08 Weight - Most Recent: 257 lb 15.053 oz I&O - Last 24 hours: Intake & Output 12/16/16 12/17/16 12/17/16 22:59 06:59 14:59 Intake Total 240 1967 1080 Output Total 1325 Balance 845 045 6889 Lab Results - Last 24 hrs: Laboratory Results - last 24 hr 12/17/16 Range/Units 05:11 Hgb 11.5 L (12.0-15.0) g/dL Med Orders - Current: Current Medications Albuterol (Proventil Neb Soln) 2.5 mg NEB Q4H PRN PRN Reason: Shortness Of Breath/wheezing Amlodipine Besylate (Norvasc) 2.5 mg PO BID [facility] Last Admin: 12/17/16 09:32 Dose: 2.5 mg Dextrose (Glutose 15) 15 gm PO ONETIME PRN PRN Reason: Hypoglycemia Dextrose/Water (Dextrose 50% In Water) 50 ml IV ONETIME PRN PRN Reason: Hypoglycemia Docusate Sodium (Colace) 100 mg PO BID PRN PRN Reason: Constipation Last Admin: 12/17/16 09:34 Dose: 100 mg Gabapentin (Neurontin) 600 mg PO QID [facility] Last Admin: 12/17/16 09:34 Dose: 600 mg Hydromorphone HCl (Dilaudid) 0.5 mg IVPUSH Q2H PRN PRN Reason: Pain Last Admin: 12/15/16 01:24 Dose: 0.5 mg Sodium Chloride (Normal Saline) 1,000 mls @ 75 mls/hr IV ASDIRECTED [facility] Last Admin: 12/17/16 03:42 Dose: 75 mls/hr Insulin Aspart (Novolog) 0 unit SUBCUT QIDACANDBED [facility] PRN Reason: Protocol Last Admin: 12/17/16 12:01 Dose: 1 unit Lisinopril (Prinivil) 10 mg PO DAILY [facility] Last Admin: 12/17/16 09:33 Dose: 10 mg Lovastatin (Mevacor) 20 mg PO BEDTIME [facility] Last Admin: 12/16/16 21:23 Dose: 20 mg Magnesium Hydroxide (Milk Of Magnesia) 30 ml PO Q12H PRN PRN Reason: Constipation Magnesium Oxide (Magnesium Oxide) 400 mg PO BID [facility] Last Admin: 12/17/16 09:31 Dose: 400 mg Ondansetron HCl (Zofran) 4 mg IV Q4H PRN PRN Reason: Nausea/Vomiting Oxybutynin Chloride (Oxybutynin) 5 mg PO BID [facility] Last Admin: 12/17/16 09:33 Dose: 5 mg Oxycodone HCl (Oxycodone) 5 mg PO Q4H PRN PRN Reason: Pain (moderate 4-6) Last Admin: 12/15/16 21:19 Dose: 5 mg Pantoprazole Sodium (Protonix Iv) 40 mg IVPUSH Q12H [facility] Last Admin: 12/17/16 09:44 Dose: 40 mg Sodium Chloride (Saline Flush) 10 ml FLUSH ASDIRECTED PRN PRN Reason: Keep Vein Open Terazosin HCl (Hytrin) 10 mg PO BEDTIME [facility] Last Admin: 12/16/16 21:36 Dose: 10 mg Discontinued Medications Amlodipine Besylate (Norvasc) Confirm Administered Dose 5 mg .ROUTE .STK-MED ONE Stop: 12/14/16 18:48 Last Admin: 12/14/16 18:52 Dose: Not Given Hydromorphone HCl (Dilaudid) 0.5 mg IVPUSH ONETIME ONE Stop: 12/14/16 06:08 Last Admin: 12/14/16 06:15 Dose: 0.5 mg Sodium Chloride (Normal Saline) 1,000 mls @ 150 mls/hr IV ASDIRECTED [facility] Last Admin: 12/14/16 06:15 Dose: 150 mls/hr Sodium Chloride (Normal Saline) 85 mls @ 3.5 mls/sec IV ASDIRECTED [facility] Stop: 12/14/16 08:30 Last Admin: 12/14/16 07:36 Dose: 3.5 mls/sec Pantoprazole Sodium 80 mg/ (Sodium Chloride) 100 mls @ 10 mls/hr IV .Q10H [facility] Last Admin: 12/14/16 10:10 Dose: 10 mls/hr Pantoprazole Sodium 80 mg/ (Sodium Chloride) 100 mls @ 10 mls/hr IV .Q10H [facility] Last Admin: 12/16/16 05:52 Dose: 10 mls/hr Sodium Chloride (Normal Saline) 1,000 mls @ 125 mls/hr IV ASDIRECTED HITESH Last Admin: 12/15/16 03:49 Dose: 125 mls/hr Magnesium Sulfate 2 gm/ Premix 50 mls @ 25 mls/hr IV ONETIME ONE Stop: 12/15/16 11:59 Last Admin: 12/15/16 10:04 Dose: 25 mls/hr Iopamidol (Isovue-300 (61%)) 150 ml IV . DIRECTED PRN PRN Reason: RADIOLOGY EXAM Stop: 12/14/16 08:30 Last Admin: 12/14/16 07:36 Dose: 150 ml Lisinopril (Prinivil) 10 mg PO ONETIME ONE Stop: 12/14/16 18:20 Last Admin: 12/14/16 18:52 Dose: 10 mg Pantoprazole Sodium (Protonix Iv) 80 mg IVPUSH .BOLUS ONE Stop: 12/14/16 10:01 Last Admin: 12/14/16 10:09 Dose: 80 mg Polyethylene Glycol (Miralax) 17 gm PO DAILY PRN PRN Reason: Constipation Sodium Chloride (Saline Flush) 10 ml FLUSH ONETIME PRN PRN Reason: per radiology protocol Stop: 12/14/16 08:30 Last Admin: 12/14/16 07:33 Dose: 10 ml Sodium Chloride (Saline Flush) 10 ml FLUSH ASDIRECTED PRN PRN Reason: Keep Vein Open Last Admin: 12/14/16 10:10 Dose: 10 ml *Q Meaningful Use (DIS) - VTE *Q VTE Criteria *Q: VTE Pharmacological Contraindications *Q: Active Hemorrhage - Stroke *Q Stroke Criteria *Q: - AMI *Q AMI Criteria *Q:
== END 2016-12-17 14:49 | disposition home or self-care (01) | DRG 393 ==
LOC: JP.ED 05:29 → JP.ICU 10:14 → JP.2SS 12-16 10:23
PROVIDERS: ADMIT Hospitalist; ATTEND Hospitalist
DX: K63.1 Perforation of intestine (nontraumatic) (principal); K66.1 Hemoperitoneum; E11.9 Type 2 diabetes mellitus without complications; Z87.11 Personal history of peptic ulcer disease; I10 Essential (primary) hypertension; F17.220 Nicotine dependence, chewing tobacco, uncomplicated; E78.00 Pure hypercholesterolemia, unspecified; H54.7 Unspecified visual loss; Z79.84 Long term (current) use of oral hypoglycemic drugs; N40.1 Benign prostatic hyperplasia with lower urinary tract symptoms; R33.8 Other retention of urine; Z90.49 Acquired absence of other specified parts of digestive tract; Z96.659 Presence of unspecified artificial knee joint
CPT/HCPCS: 36415; 71260; 74177; 80048; 80053; 82150; 82962; 83690; 83735; 84484; 85018; 85025; 86850; 86900; 86901; 86920; 86922; 93005; 93010; 96361; 96374; 96375; 99223-AI; 99232; 99238; 99284; 99285-25; A9270-GY; C9113; J1170; J3475; J7030; J7040; J7050

== ENCOUNTER 2017-01-01 06:26 | Day surgery (SDC) | payer MEDICARE, OTHER ==
[2017-01-01] MEDS ORDERED: Lactated Ringers 1,000 ML IV SCH ×2 (07:00)
[2017-01-01] MEDS ORDERED: fentaNYL 100 MCG/2 ML SDV ONE (07:00)
[2017-01-01] MEDS ORDERED: Propofol 200 MG/20 ML SDV ONE (07:00)
[2017-01-01] MEDS ORDERED: Midazolam 1 MG/ML 2 ML SDV ONE (07:00)
[2017-01-01 08:58] VITALS: BP 119/69
--- NOTE | 2017-01-01 12:25 | OR ---
DATE OF PROCEDURE: 01/01/2017 PREOPERATIVE DIAGNOSES: Resolved epigastric pain. Abnormal CAT scan suggestive of possible peptic ulcer disease. POSTOPERATIVE DIAGNOSES: Mild gastritis, gastroesophageal reflux disease, abnormal CAT scan with blood in the abdomen, findings suggestive of possible peptic ulcer disease. PROCEDURE: Esophagogastroduodenoscopy with antral biopsies for CLOtest and for pathology to look for Helicobacter pylori. Biopsy of gastroesophageal junction. SURGEON: Georges Prado MD. ANESTHESIA: IV anesthesia with monitored anesthesia care. INDICATION: This 71-year-old white male is referred for upper endoscopy. Earlier this month he presented to the emergency room with epigastric pain. CAT scan of his abdomen and pelvis showed some blood in his upper abdomen around the stomach and liver. The thought was possibly this was related to peptic ulcer disease. He was treated for peptic ulcer disease and now presents for upper endoscopy. I counseled him for upper endoscopy with possible biopsy including risks and alternatives, and he gave his informed consent to proceed. DESCRIPTION OF PROCEDURE: The patient was placed in a left lateral decubitus position. IV anesthesia was administered by the Anesthesia Service. Time-out was held. The flexible video Olympus upper endoscope was passed through his mouth, down his esophagus, and into his stomach. The scope was easily passed through the pylorus and into the duodenum reaching its third portion. The scope was then slowly withdrawn, examining the mucosa throughout. The duodenal mucosa appeared unremarkable. The scope was brought up through the pylorus. There was some mild erythema of the antrum suggestive of mild gastritis. Examination of the stomach showed no obvious peptic ulcer disease. We obtained antral biopsies for CLOtest and sent tissue for pathology to look for Helicobacter pylori. The scope was retroflexed. The most proximal stomach appeared unremarkable. The scope was straightened and brought up to the GE junction. The Z-line was abnormal as it was not straight. We obtained multiple, totalling six, biopsies of the gastroesophageal junction. The scope was then brought up through the remainder of the esophagus, which otherwise appeared unremarkable and it was removed. He tolerated the procedure well. Georges Prado MD /[id number] MTDDebbie
== END 2017-01-01 09:12 | disposition home or self-care (01) ==
LOC: JP.SDS 06:26
PROVIDERS: ATTEND Surgery
DX: K29.50 Unspecified chronic gastritis without bleeding (principal); K20.9 Esophagitis, unspecified; I10 Essential (primary) hypertension; E11.9 Type 2 diabetes mellitus without complications; E78.00 Pure hypercholesterolemia, unspecified; Z98.890 Other specified postprocedural states; Z90.49 Acquired absence of other specified parts of digestive tract; Z96.659 Presence of unspecified artificial knee joint
CPT/HCPCS: 43239; 82962; 87081; 88305; J2250; J2704; J3010; J7120

== ENCOUNTER 2017-04-24 13:21 | Emergency (ER) | payer MEDICARE ==
[2017-04-24 16:47] VITALS: BP 97/71
--- NOTE | 2017-04-24 17:32 | EDM.PDOC ---
ED HPI GENERAL MEDICAL PROBLEM - General Chief Complaint: Chest Pain Stated Complaint: CHEST PAIN Time Seen by Provider: 04/24/17 13:35 Source of Information: Reports: Patient History Limitations: Reports: No Limitations - History of Present Illness INITIAL COMMENTS - FREE TEXT/NARRATIVE: pt arrived stating that he had 4 hours of chest pain. he states he gets the pain alot but this was much worse then usual. he had a neg lexiscan in dec. he has not been able to do his usual activity for a long leia. he tries to walk but with the cold weather that has not been happening. He has not fallen or injured himself. Onset: Today, Other ( 4 hrs of chest pain) Duration: Hour(s): Location: Reports: Chest Associated Symptoms: Reports: Chest Pain, Shortness of Breath, Other ( He states he is always sob. ) Left Middle Chest Pain Score (Numeric/FACES): 2 - Related Data Allergies Allergy/AdvReac Type Severity Reaction Status Date / Time No Known Allergies Allergy Verified 01/04/17 09:42 Home Meds: Home Meds Lisinopril [Prinivil] 10 mg PO DAILY 07/09/13 [History] Lovastatin [Mevacor] 20 mg PO BEDTIME 07/09/13 [History] Oxybutynin Chloride [Ditropan Xl] 10 mg PO DAILY 07/09/13 [History] Terazosin HCl [Terazosin] 10 mg PO BEDTIME 07/09/13 [History] amLODIPine [Norvasc] 5 mg PO BID 07/09/13 [History] glipiZIDE [Glucotrol] 2.5 mg PO DAILY 07/09/13 [History] metFORMIN HCl [Fortamet] 1,000 mg PO BIDAC 07/09/13 [History] Gabapentin [Neurontin] 600 mg PO QID 12/14/16 [History] Aspirin [Ecotrin] 81 mg PO DAILY 01/01/17 [History] Cyanocobalamin (Vitamin B-12) [B-12] 1,000 mg PO DAILY 01/01/17 [History] Ferrous Gluconate 324 mg PO DAILY 01/01/17 [History] Pantoprazole Sodium [Protonix] 40 mg PO DAILY 01/01/17 [History] Past Medical History HEENT History: Reports: Hard of Hearing, Impaired Vision Cardiovascular History: Reports: High Cholesterol, Hypertension, SOB on Exertion Gastrointestinal History: Reports: Bowel Obstruction Genitourinary History: Reports: Retention, Urinary, Other (See Below) Other Genitourinary History: enlarged prostate Musculoskeletal History: Reports: Back Pain, Chronic Endocrine/Metabolic History: Reports: Diabetes, Type II Hematologic History: Reports: Blood Transfusion(s) - Infectious Disease History Infectious Disease History: Reports: Chicken Pox, Measles, Mumps - Past Surgical History Head Surgeries/Procedures: Reports: None HEENT Surgical History: Reports: None Cardiovascular Surgical History: Reports: None GI Surgical History: Reports: Colonoscopy Other GI Surgeries/Procedures: colectomy Male Surgical History: Reports: None Musculoskeletal Surgical History: Reports: Knee Replacement, Other (See Below) Other Musculoskeletal Surgeries/Procedures:: back surgery x2 Social & Family History - Family History Family Medical History: Noncontributory - Tobacco Use Smoking Status *Q: Never Smoker Years of Tobacco use: 55 Packs/Tins Daily: 0.5 Used Tobacco, but Quit: No Month Tobacco Last Used: 4 Second Hand Smoke Exposure: No - Caffeine Use Caffeine Use: Reports: Coffee - Alcohol Use Days Per Week of Alcohol Use: 0 - Recreational Drug Use Recreational Drug Use: No ED ROS GENERAL - Review of Systems Review Of Systems: See Below Constitutional: Reports: No Symptoms HEENT: Reports: No Symptoms Respiratory: Reports: Shortness of Breath, Other ( this has been chronic for him. He states that all summer he has not been able to tolerate activity as usual. ) Endocrine: Reports: High Glucose GI/Abdominal: Reports: No Symptoms : Reports: No Symptoms Musculoskeletal: Reports: No Symptoms Neurological: Reports: No Symptoms, Other (Pt is able to give a good history. ) Psychiatric: Reports: No Symptoms ED EXAM, GENERAL - Physical Exam Exam: See Below Free Text/Narrative:: pt arrived with sob and left sided chest pain. He states he has been having chest pain on and off but his was worse than usual and he states it lasted for 3-4 hours . On arrival his pain was gone. He described just a ache, Exam Limited By: No Limitations General Appearance: Alert, Anxious, Mild Distress, Other (pupils equal and reactive. ) Ears: Normal TMs Nose: Normal Inspection Throat/Mouth: Normal Inspection Head: Atraumatic Neck: Normal Inspection Respiratory/Chest: Other (pt did not have resp distress but he did seem to get winded when he moves around. ) Cardiovascular: Regular Rate, Rhythm, Other (Pt described just a ache in the left chest. ) GI/Abdominal: Soft, Non-Tender (Male) Exam: Deferred Rectal (Males) Exam: Deferred Back Exam: Normal Inspection Extremities: Normal Inspection, Other (Pt did not have sig edema) Neurological: Alert, Oriented, Normal Cognition Course - Vital Signs Last Recorded V/S: Last Vital Signs Temp 36.6 C 04/24/17 13:31 Pulse 62 04/24/17 16:46 Resp 14 04/24/17 16:46 BP 97/71 04/24/17 16:46 Pulse Ox 96 04/24/17 15:53 - Orders/Labs/Meds Orders: Active Orders 24 hr Category Date Time Status EKG Documentation Completion [RC] ASDIRECTED Care 04/24/17 13:52 Active Chest 1V Frontal [CR] Stat Exams 04/24/17 13:50 Taken CULTURE URINE [RM] Stat Lab 04/24/17 16:08 Received EKG 12 Lead [EK] Routine Ther 04/24/17 13:52 Ordered Labs: Laboratory Tests 04/24/17 04/24/17 04/24/17 Range/Units 13:50 13:50 13:50 WBC 11.6 H (4.5-11.0) K/uL RBC 4.62 (4.30-5.90) M/uL Hgb 13.3 (12.0-15.0) g/dL Hct 39.5 L (40.0-54.0) % MCV 86 (80-98) fL MCH 29 (27-31) pg MCHC 34 (32-36) % Plt Count 316 (150-400) K/uL Neut % (Auto) 66 (36-66) % Lymph % (Auto) 24 (24-44) % [place] % (Auto) 8 H (2-6) % Eos % (Auto) 2 (2-4) % Baso % (Auto) 1 (0-1) % Sodium 141 (140-148) mmol/L Potassium 3.8 (3.6-5.2) mmol/L Chloride 105 (100-108) mmol/L Carbon Dioxide 23 (21-32) mmol/L Anion Gap 13.4 (5.0-14.0) mmol/L BUN 18 D (7-18) mg/dL Creatinine 1.2 (0.8-1.3) mg/dL Est Cr Clr Drug Dosing 57.45 mL/min Estimated GFR (MDRD) 60 (>60) Glucose 286 H (74-106) mg/dL Calcium 8.6 (8.5-10.1) mg/dL Total Bilirubin 0.4 (0.2-1.0) mg/dL AST 15 (15-37) U/L ALT 30 (12-78) U/L Alkaline Phosphatase 67 (46-116) U/L Creatine Kinase 87 (39-308) U/L Troponin I < 0.017 (0.000-0.056) ng/mL NT-Pro-B Natriuret Pep (5-125) pg/mL Total Protein 6.9 (6.4-8.2) g/dL Albumin 3.5 (3.4-5.0) g/dL Globulin 3.4 (2.3-3.5) g/dL Albumin/Globulin Ratio 1.0 L (1.2-2.2) Urine Color Urine Appearance Urine pH (4.5-8.0) Ur Specific [place] (1.008-1.030) Urine Protein (NEGATIVE) mg/dL Urine Glucose (UA) (NEGATIVE) mg/dL Urine Ketones (NEGATIVE) mg/dL Urine Occult Blood (NEGATIVE) Urine Nitrite (NEGAITVE) Urine Bilirubin (NEGATIVE) Urine Urobilinogen (NORMAL) mg/dL Ur Leukocyte Esterase (NEGATIVE) Urine RBC (0-5) Urine WBC (0-5) Ur Epithelial Cells Amorphous Sediment Urine Bacteria Urine Mucus Urine Other 04/24/17 04/24/17 04/24/17 Range/Units 13:52 15:20 16:43 WBC (4.5-11.0) K/uL RBC (4.30-5.90) M/uL Hgb (12.0-15.0) g/dL Hct (40.0-54.0) % MCV (80-98) fL MCH (27-31) pg MCHC (32-36) % Plt Count (150-400) K/uL Neut % (Auto) (36-66) % Lymph % (Auto) (24-44) % [place] % (Auto) (2-6) % Eos % (Auto) (2-4) % Baso % (Auto) (0-1) % Sodium (140-148) mmol/L Potassium (3.6-5.2) mmol/L Chloride (100-108) mmol/L Carbon Dioxide (21-32) mmol/L Anion Gap (5.0-14.0) mmol/L BUN (7-18) mg/dL Creatinine (0.8-1.3) mg/dL Est Cr Clr Drug Dosing mL/min Estimated GFR (MDRD) (>60) Glucose (74-106) mg/dL Calcium (8.5-10.1) mg/dL Total Bilirubin (0.2-1.0) mg/dL AST (15-37) U/L ALT (12-78) U/L Alkaline Phosphatase (46-116) U/L Creatine Kinase (39-308) U/L Troponin I < 0.017 (0.000-0.056) ng/mL NT-Pro-B Natriuret Pep 160 H (5-125) pg/mL Total Protein (6.4-8.2) g/dL Albumin (3.4-5.0) g/dL Globulin (2.3-3.5) g/dL Albumin/Globulin Ratio (1.2-2.2) Urine Color [place] Urine Appearance Cloudy Urine pH 5.0 (4.5-8.0) Ur Specific [place] 1.025 (1.008-1.030) Urine Protein Negative (NEGATIVE) mg/dL Urine Glucose (UA) 250 H (NEGATIVE) mg/dL Urine Ketones Negative (NEGATIVE) mg/dL Urine Occult Blood Negative (NEGATIVE) Urine Nitrite Negative (NEGAITVE) Urine Bilirubin Small (NEGATIVE) Urine Urobilinogen 1 (NORMAL) mg/dL Ur Leukocyte Esterase Moderate (NEGATIVE) Urine RBC 0-5 (0-5) Urine WBC 10-20 H (0-5) Ur Epithelial Cells Few Amorphous Sediment Moderate Urine Bacteria Few Urine Mucus Moderate Urine Other See note - Re-Assessments/Exams Free Text/Narrative Re-Assessment/Exam: 04/25/17 07:11 pt was pain free on arrival. his first trop was normal and he had a rt bundle on his ekg which was present on his stress test done in Dec. He had a neg stress test in dec. He states his exercise tolerance has decreased significantly. . He had a second trop that was also neg 4-5 hours later. He had no further chest pain. His bnp was normal. He [place] [facility] [place] [facility] coming [facility] for another test which he is not sure what it is, His bs has been running high and today it is 286. He wiheduled to see Dr Lu the first of the week to look at his sugars and see if he is having any further chest pain. His appt in [place] with [facility] is not until May. Perhaps that could be set up and do that earlier. Departure - Departure Time of Disposition: 17:33 Disposition: Home, Self-Care 01 Condition: Fair Clinical Impression: Atypical chest pain, SOB (shortness of breath) Instructions: Nonspecific Chest Pain Referrals: Faizan Lu MD [Primary Care Provider] - Forms: ED Department Discharge Care Plan Goals: appt with Dr Lu the first of the week. His bs is high and he has atypical chest pain--neg trop x2-- lexiscan in Dec was normal. cont same meds. - My Orders Last 24 Hours: My Active Orders 04/24/17 13:50 Chest 1V Frontal [CR] Stat 04/24/17 13:52 EKG Documentation Completion [RC] ASDIRECTED EKG 12 Lead [EK] Routine 04/24/17 16:08 CULTURE URINE [RM] Stat - Assessment/Plan Last 24 Hours: My Active Orders 04/24/17 13:50 Chest 1V Frontal [CR] Stat 04/24/17 13:52 EKG Documentation Completion [RC] ASDIRECTED EKG 12 Lead [EK] Routine 04/24/17 16:08 CULTURE URINE [RM] Stat
--- NOTE | 2017-04-26 09:05 | CR ---
Chest 1V Frontal HISTORY: sob COMPARISON: 04/20/2014, 10/10/2012 FINDINGS: Portable chest, 1357 hours. Lungs appear clear and normally aerated. Cardiomediastinal silhouette is within normal limits. No vas cular redistribution or pleural fluid can be seen. Bony structures and soft tissues are unremarkable. IMPRESSION: No acute chest abnormality is identified.
== END 2017-04-24 17:52 | disposition home or self-care (01) ==
LOC: JP.ED 13:21
DX: R07.89 Other chest pain (principal); R06.02 Shortness of breath; I10 Essential (primary) hypertension; E11.9 Type 2 diabetes mellitus without complications; E78.00 Pure hypercholesterolemia, unspecified; Z79.82 Long term (current) use of aspirin; Z79.84 Long term (current) use of oral hypoglycemic drugs; Z72.0 Tobacco use
CPT/HCPCS: 36415; 71045; 71045-26; 80053; 81001; 82550; 83880; 84484; 85025; 87086; 93005; 99285; 99285-25

== ENCOUNTER 2017-11-23 17:44 | Emergency (ER) | payer MEDICARE ==
--- NOTE | 2017-11-23 18:52 | EDM.PDOC ---
ED HPI GENERAL MEDICAL PROBLEM - General Chief Complaint: Genitourinary Problem Stated Complaint: BLADDER INFECTION Time Seen by Provider: 11/23/17 18:46 Source of Information: Reports: Patient, RN Notes Reviewed History Limitations: Reports: No Limitations - History of Present Illness INITIAL COMMENTS - FREE TEXT/NARRATIVE: 72-year-old gentleman presents to the emergency department today with complaint of urinary retention. He states he was recently diagnosed with a urinary tract infection started on medication of Bactrim. Cultures are available which do show sensitivity to that medication. He states he has had difficulty with urination most of the day only gets a few dribbles out he has had problems with the prostate in the past and has had a Barraza catheter placed multiple times. Denies any fevers bladder scan does show 100 mL of fluid, Abdominal Pain Score (Numeric/FACES): 8 - Related Data Allergies Allergy/AdvReac Type Severity Reaction Status Date / Time No Known Allergies Allergy Verified 01/04/17 09:42 Home Meds: Home Meds Lisinopril [Prinivil] 10 mg PO DAILY 07/09/13 [History] Lovastatin [Mevacor] 20 mg PO BEDTIME 07/09/13 [History] Oxybutynin Chloride [Ditropan Xl] 10 mg PO DAILY 07/09/13 [History] Terazosin HCl [Terazosin] 10 mg PO BEDTIME 07/09/13 [History] amLODIPine [Norvasc] 5 mg PO BID 07/09/13 [History] glipiZIDE [Glucotrol] 2.5 mg PO DAILY 07/09/13 [History] metFORMIN HCl [Fortamet] 1,000 mg PO BIDAC 07/09/13 [History] Gabapentin [Neurontin] 600 mg PO QID 12/14/16 [History] Aspirin [Ecotrin] 81 mg PO DAILY 01/01/17 [History] Cyanocobalamin (Vitamin B-12) [B-12] 1,000 mg PO DAILY 01/01/17 [History] Ferrous Gluconate 324 mg PO DAILY 01/01/17 [History] Pantoprazole Sodium [Protonix] 40 mg PO DAILY 01/01/17 [History] Past Medical History HEENT History: Reports: Hard of Hearing, Impaired Vision Cardiovascular History: Reports: High Cholesterol, Hypertension, SOB on Exertion Respiratory History: Reports: COPD Gastrointestinal History: Reports: Bowel Obstruction Genitourinary History: Reports: Retention, Urinary, UTI, Recurrent, Other (See Below) Other Genitourinary History: enlarged prostate Musculoskeletal History: Reports: Back Pain, Chronic Endocrine/Metabolic History: Reports: Diabetes, Type II Hematologic History: Reports: Blood Transfusion(s) - Infectious Disease History Infectious Disease History: Reports: Chicken Pox, Measles, Mumps - Past Surgical History Head Surgeries/Procedures: Reports: None HEENT Surgical History: Reports: None Cardiovascular Surgical History: Reports: None GI Surgical History: Reports: Colonoscopy Other GI Surgeries/Procedures: colectomy Male Surgical History: Reports: None Musculoskeletal Surgical History: Reports: Knee Replacement, Other (See Below) Other Musculoskeletal Surgeries/Procedures:: back surgery x2 Social & Family History - Family History Family Medical History: Noncontributory - Tobacco Use Smoking Status *Q: Current Some Day Smoker Years of Tobacco use: 40 Packs/Tins Daily: 1 - Caffeine Use Caffeine Use: Reports: Coffee - Recreational Drug Use Recreational Drug Use: No ED ROS GENERAL - Review of Systems Review Of Systems: See Below Constitutional: Denies: Fever, Chills Respiratory: Reports: No Symptoms Cardiovascular: Reports: No Symptoms GI/Abdominal: Reports: Abdominal Pain (suprapubic) : Reports: Urinary Retention ED EXAM, RENAL/ - Physical Exam Exam: See Below Text/Narrative:: Examination after placement of Barraza catheter and 1000 mL of urine removed abdomen is obese but soft and nontender Exam Limited By: No Limitations General Appearance: Alert, WD/WN, No Apparent Distress Course - Vital Signs Last Recorded V/S: Last Vital Signs Temp 96.4 F 11/23/17 18:13 Pulse 85 11/23/17 18:13 Resp 16 11/23/17 18:13 BP 186/90 H 11/23/17 18:13 Pulse Ox 95 11/23/17 18:13 - Orders/Labs/Meds Orders: Active Orders 24 hr Category Date Time Status Bladder Scan [RC] ASDIRECTED Care 11/23/17 18:18 Active Barraza Catheter Insertion [Insert Urinary Catheter] [OM. Care 11/23/17 18:30 Ordered PC] Q24H Urinary Catheter Assessment [RC] ASDIRECTED Care 11/23/17 18:19 Active Departure - Departure Time of Disposition: 18:51 Disposition: Home, Self-Care 01 Condition: Good Clinical Impression: Urinary retention - Discharge Information Referrals: PCP,None [Primary Care Provider] - Additional Instructions: Continue taking antibiotics are restarted, please follow-up with your primary care provider in the next 2-3 days for reevaluation, call or return to the emergency department worsening of symptoms - My Orders Last 24 Hours: My Active Orders 11/23/17 18:18 Bladder Scan [RC] ASDIRECTED 11/23/17 18:19 Urinary Catheter Assessment [RC] ASDIRECTED 11/23/17 18:30 Barraza Catheter Insertion [Insert Urinary Catheter] [OM.PC] Q24H - Assessment/Plan Last 24 Hours: My Active Orders 11/23/17 18:18 Bladder Scan [RC] ASDIRECTED 11/23/17 18:19 Urinary Catheter Assessment [RC] ASDIRECTED 11/23/17 18:30 Barraza Catheter Insertion [Insert Urinary Catheter] [OM.PC] Q24H Plan: Assessment Acuity = acute Site and laterality = urinary retention status post placement of Barraza catheter Etiology = probably secondary to prostate enlargement and recent urinary tract infection Manifestations = none Location of injury = Home Lab values = none Plan He'll follow-up with his primary care in the next 2-3 days for reevaluation with possible referral to urology continue taking Bactrim are restarted This note was dictated using [employer] voice recognition software please call with any questions on syntax or grammar.
[2017-11-23 19:26] VITALS: BP 159/73
== END 2017-11-23 19:24 | disposition home or self-care (01) ==
LOC: JP.ED 17:44
DX: R33.9 Retention of urine, unspecified (principal); I10 Essential (primary) hypertension; E78.00 Pure hypercholesterolemia, unspecified; J44.9 Chronic obstructive pulmonary disease, unspecified; E11.9 Type 2 diabetes mellitus without complications; F17.210 Nicotine dependence, cigarettes, uncomplicated; Z79.01 Long term (current) use of anticoagulants; Z79.899 Other long term (current) drug therapy; Z79.84 Long term (current) use of oral hypoglycemic drugs
CPT/HCPCS: 51702; 51798; 99283-25

== ENCOUNTER 2017-11-25 23:02 | Emergency (ER) | payer MEDICARE | END 2017-11-25 23:45 | disposition home or self-care (01) | LOC: JP.ED 23:02 | DX: Z53.21 Procedure and treatment not carried out due to patient leaving prior to being seen by health care provider (principal) ==

== ENCOUNTER 2022-02-16 13:54 | Emergency (ER) | payer OTHER ==
[2022-02-16 14:21] VITALS: PULSE 88
[2022-02-16] MEDS ORDERED: Sodium Chloride 0.9% 10 ML Syringe FLUSH PRN (15:04)
[2022-02-16] MEDS ORDERED: Sodium Chloride 0.9% 1,000 ML IV SCH (15:15)
[2022-02-16] MEDS ORDERED: Iopamidol 612 MG/ML 100 ML Bottle IV PRN (15:19)
[2022-02-16] MEDS ORDERED: Sodium Chloride 0.9% 100 ML IV SCH (15:30)
[2022-02-16 15:37] LABS: ESTIMATED GFR 62 mL/min (>60)
[2022-02-16] MEDS ORDERED: Ampicillin/Sulbactam Na 3 GM in Sodium Chloride 0.9% 100 ML IV ONE (16:58)
[2022-02-16] MEDS ORDERED: Sodium Chloride 0.9% 500 ML IV ONE (17:05)
[2022-02-16 18:03] VITALS: BP 165/80
== END 2022-02-16 18:27 | disposition home or self-care (01) ==
LOC: JP.ED 13:54
DX: K57.32 Diverticulitis of large intestine without perforation or abscess without bleeding (principal); E11.65 Type 2 diabetes mellitus with hyperglycemia; E78.00 Pure hypercholesterolemia, unspecified; I10 Essential (primary) hypertension; J44.9 Chronic obstructive pulmonary disease, unspecified; F17.210 Nicotine dependence, cigarettes, uncomplicated; E66.9 Obesity, unspecified; Z68.37 Body mass index [BMI] 37.0-37.9, adult; Z20.822 Contact with and (suspected) exposure to COVID-19
CPT/HCPCS: 36415; 74177; 80053; 81001; 83605; 85025; 86140; 87635; 96361; 96365; 99284; J0295; J3490; J7030; J7040; Q9967; U0002

== ENCOUNTER 2024-06-29 01:49 | Inpatient (IN) | payer MEDICARE, OTHER ==
[2024-06-29] MEDS: fentaNYL 100 MCG/2 ML SDV IVPUSH ONE ×2 (02:21→07:26)
[2024-06-29] MEDS: Sodium Chloride 0.9% 1,000 ML IV STA (02:21)
[2024-06-29] MEDS: Ondansetron 4 MG/2 ML SDV IVPUSH ONE (02:21)
[2024-06-29] MEDS: Sodium Chloride 0.9% 10 ML Syringe FLUSH PRN ×2 (02:22→03:25)
[2024-06-29 02:23] LABS: HEMATOCRIT 42.8 % (38.4-49.7); HEMOGLOBIN 14.1 g/dL (12.9-16.9); MEAN CORPUSCULAR HEMOGLOBIN 28.6 pg (31.6-35.5); MEAN CORPUSCULAR HGB CONC 32.9 g/dL (31.6-35.5); MEAN CORPUSCULAR VOLUME 86.8 fL (81.4-99.0); PLATELET COUNT,PLT 339 K/uL (130-375); RED BLOOD CELL COUNT 4.93 M/uL (4.14-5.76); WHITE BLOOD CELL COUNT,WBC 18.6 K/uL (3.2-11.0)
[2024-06-29 02:50] LABS: A/G RATIO 0.9 (1.2-2.2); ALANINE AMINOTRANSFERASE,ALT 44 U/L (12-78); ALBUMIN 3.7 g/dL (3.4-5.0); ALKALINE PHOSPHATASE 89 U/L (46-116); ASPARTATE AMNIOTRANSFERASE,AST 24 U/L (15-37); BILIRUBIN TOTAL 0.3 mg/dL (0.2-1.0); BLOOD UREA NITROGEN,BUN 19 mg/dL (7-18); CALCIUM 9.4 mg/dL (8.5-10.1); CARBON DIOXIDE,CO2 27 mmol/L (21-32); CHLORIDE,CL 103 mmol/L (100-108); CREATININE 1.3 mg/dL (0.8-1.3); EST CRCL DRUG DOSING (CG) 47.57 mL/min; ESTIMATED GFR 56 mL/min (>60); GLUCOSE RANDOM 218 mg/dL (74-106); POTASSIUM,K 3.5 mmol/L (3.6-5.2); PROTEIN TOTAL,TP 7.8 g/dL (6.4-8.2); SODIUM,NA 142 mmol/L (140-148)
[2024-06-29 02:51] LABS: ANION GAP 15.5 mmol/L (5.0-14.0)
[2024-06-29 02:59] LABS: ATYPICAL LYMPHOCYTES MODERATE; LYMPHOCYTES ABSOLUTE MAN 7.63 K/uL (0.8-3.3); LYMPHOCYTES PERCENT MAN 41 % (24-44); MONOCYTES ABSOLUTE MAN 0.74 K/uL (0.20-0.90); MONOCYTES PERCENT MAN 4 % (2-6); NEUTROPHILS ABSOLUTE MAN 10.23 K/uL (1.0-7.6); SEG NEUTROPHILS PERCENT MAN 55 % (36-66)
[2024-06-29] MEDS: Iopamidol 612 MG/ML 100 ML Bottle IV SCH (03:25)
[2024-06-29] MEDS: Sodium Chloride 0.9% 100 ML IV SCH (03:25)
[2024-06-29] MEDS: Lidocaine 4% Top Soln 50 ML Bottle MUCMEM ONE (04:56)
[2024-06-29] MEDS ORDERED: 50% Dextrose in Water 50 ML Syringe IV PRN (05:02)
[2024-06-29] MEDS ORDERED: Glucose Gel 15 GM in 37.5 GM Tube PO PRN (05:02)
[2024-06-29] MEDS ORDERED: Naloxone 0.4 MG/ML SDV IVPUSH PRN (05:28)
[2024-06-29] MEDS ORDERED: Albuterol/Ipratropium 3.0-0.5 MG/3 ML Neb Soln INH PRN (05:28)
[2024-06-29] MEDS ORDERED: Sodium Chloride 0.9% 10 ML Syringe FLUSH PRN (05:28)
[2024-06-29] MEDS ORDERED: HYDROmorphone 1 MG/ML Syringe IVPUSH PRN (05:28)
[2024-06-29] MEDS ORDERED: Ondansetron 4 MG/2 ML SDV IV PRN (05:28)
[2024-06-29] MEDS: Enoxaparin 40 MG/0.4 ML Syringe SUBCUT SCH (05:55)
[2024-06-29] MEDS: Pantoprazole 40 MG Vial IV SCH (05:55)
[2024-06-29] MEDS: Potassium Chloride 10 MEQ in Premix Bag 1 BAG IV SCH (05:55)
[2024-06-29 06:07] LABS: APPEARANCE,URINE SLIGHTLY CLOUDY (CLEAR); BILIRUBIN,URINE NEGATIVE (NEGATIVE); COLOR,URINE YELLOW (YELLOW); GLUCOSE,URINE 100 mg/dL (NEGATIVE); KETONES,URINE NEGATIVE (NEGATIVE); LEUKOCYTE ESTERASE,URINE NEGATIVE (NEGATIVE); NITRITE,URINE NEGATIVE (NEGATIVE); OCCULT BLOOD,URINE NEGATIVE (NEGATIVE); PH,URINE 5.5 (5.0-8.0); PROTEIN,URINE 100 mg/dL (NEGATIVE); UROBILINOGEN,URINE 0.2 EU/dL (0.2-1.0)
[2024-06-29 06:09] LABS: AMORPHOUS SEDIMENT,URINE NOT SEEN; BACTERIA,URINE FEW; EPITHELIAL CELLS,URINE MODERATE; MUCUS,URINE FEW; RBC,URINE 0-5 (0-5); WBC,URINE 0-5 (0-5)
[2024-06-29] MEDS ORDERED: Formoterol/Mometasone 200-5 MCG 8.8 GM Inhaler INH SCH (07:00)
[2024-06-29] MEDS ORDERED: HYDROmorphone 0.5 MG/0.5 ML Syringe IVPUSH PRN (07:09)
[2024-06-29 08:16] LABS: HEMATOCRIT 35.9 % (38.4-49.7); HEMOGLOBIN 11.9 g/dL (12.9-16.9); MEAN CORPUSCULAR HGB CONC 33.1 g/dL (31.6-35.5); MEAN CORPUSCULAR VOLUME 87.6 fL (81.4-99.0); RED BLOOD CELL COUNT 4.1 M/uL (4.14-5.76); WHITE BLOOD CELL COUNT,WBC 16.4 K/uL (3.2-11.0)
[2024-06-29] MEDS: Formoterol/Mometasone 200-5 MCG 8.8 GM Inhaler INH SCH (08:31)
[2024-06-29 08:33] LABS: ANION GAP 9.9 mmol/L (5.0-14.0); CALCIUM 8.1 mg/dL (8.5-10.1); CREATININE 1.2 mg/dL (0.8-1.3); EST CRCL DRUG DOSING (CG) 51.54 mL/min; POTASSIUM,K 4.3 mmol/L (3.6-5.2)
[2024-06-29 08:41] LABS: LACTIC ACID 2.3 mmol/L (0.4-2.0)
[2024-06-29] MEDS: Lisinopril 10 MG Tab PO SCH (09:28)
[2024-06-29] MEDS: Insulin Lispro 100 Unit/ML 3 ML KwikPen SUBCUT SCH (09:29)
[2024-06-29] MEDS: Sodium Chloride 0.9% 1,000 ML IV SCH ×2 (13:11→23:41)
[2024-06-29] MEDS: Gabapentin 300 MG Cap PO SCH (17:17)
[2024-06-29] MEDS: Celecoxib 200 MG Cap PO SCH (21:51)
[2024-06-29] MEDS: Terazosin 5 MG Cap PO SCH (21:51)
[2024-06-29] MEDS: amLODIPine 5 MG Tab PO SCH (21:54)
[2024-06-30 05:50] LABS: HEMATOCRIT 35.7 % (38.4-49.7); HEMOGLOBIN 11.7 g/dL (12.9-16.9); MEAN CORPUSCULAR HEMOGLOBIN 28.6 pg (31.6-35.5); MEAN CORPUSCULAR HGB CONC 32.8 g/dL (31.6-35.5); MEAN CORPUSCULAR VOLUME 87.3 fL (81.4-99.0); RED BLOOD CELL COUNT 4.09 M/uL (4.14-5.76); WHITE BLOOD CELL COUNT,WBC 11.8 K/uL (3.2-11.0)
[2024-06-30 06:09] LABS: ANION GAP 13.4 mmol/L (5.0-14.0); CALCIUM 8.2 mg/dL (8.5-10.1); EST CRCL DRUG DOSING (CG) 61.85 mL/min; POTASSIUM,K 3.4 mmol/L (3.6-5.2)
[2024-06-30] MEDS ORDERED: Non-Formulary Medication 1 Each (Finasteride [Finasteride] 1 MG Tablet) PO SCH (09:00)
[2024-06-30] MEDS: Aspirin 81 MG Tab.EC PO SCH (09:11)
[2024-06-30] MEDS: Metoprolol Succinate 25 MG Tab.ER PO SCH (09:17)
[2024-06-30] MEDS: Bisacodyl 5 MG Tab PO ONE (12:37)
[2024-06-30] MEDS: Potassium Chloride 20 MEQ Tab.ER PO ONE (12:44)
[2024-06-30 14:05] VITALS: BP 161/53; PULSE 66
== END 2024-06-30 14:45 | disposition home or self-care (01) | DRG 389 ==
LOC: JP.ED 01:49 → JP.MS 04:41
PROVIDERS: ADMIT Nurse Practitioner; ATTEND Internal Medicine
PROC: 0D9670Z Drainage of Stomach with Drainage Device, Via Natural or Artificial Opening (ICD-10-PCS; principal; 2024-06-29)
DX: K56.609 Unspecified intestinal obstruction, unspecified as to partial versus complete obstruction (principal); E87.20 Acidosis, unspecified; Z66 Do not resuscitate; E87.6 Hypokalemia; E11.9 Type 2 diabetes mellitus without complications; E11.65 Type 2 diabetes mellitus with hyperglycemia; E78.00 Pure hypercholesterolemia, unspecified; I10 Essential (primary) hypertension; J44.9 Chronic obstructive pulmonary disease, unspecified; E66.9 Obesity, unspecified; Z96.659 Presence of unspecified artificial knee joint; F17.220 Nicotine dependence, chewing tobacco, uncomplicated; H91.90 Unspecified hearing loss, unspecified ear; H54.7 Unspecified visual loss; Z79.899 Other long term (current) drug therapy; Z79.84 Long term (current) use of oral hypoglycemic drugs; Z79.82 Long term (current) use of aspirin; Z68.38 Body mass index [BMI] 38.0-38.9, adult; Z98.890 Other specified postprocedural states; Z85.038 Personal history of other malignant neoplasm of large intestine
CPT/HCPCS: 36415; 43752; 74177; 80053; 83605; 83690; 84484; 85025; 96361; 96374; 96375; 99285; J2405; J3010; J7030; Q9967; 71045; 71045-26; 74019; 74019-26; 80048; 81001; 82947; 85027; 86140; 94640; 99223; 99238; A9270-GY; J1650; J1815; J2470; J3480

== ENCOUNTER 2024-12-09 17:32 | Emergency (ER) | payer OTHER ==
[2024-12-09 17:55] VITALS: BP 168/92; PULSE 96
[2024-12-09 18:05] LABS: APPEARANCE,URINE CLEAR (CLEAR); GLUCOSE,URINE >=1000 mg/dL (NEGATIVE); OCCULT BLOOD,URINE TRACE-LYSED (NEGATIVE)
[2024-12-09 18:13] LABS: SQUAMOUS EPITHELIAL CELLS,UR RARE /HPF; UROTHELIAL CELLS,URINE NOT SEEN /HPF
== END 2024-12-09 18:52 | disposition home or self-care (01) ==
LOC: JP.ED 17:32
DX: R33.9 Retention of urine, unspecified (principal); I10 Essential (primary) hypertension; E78.00 Pure hypercholesterolemia, unspecified; E66.9 Obesity, unspecified; E11.9 Type 2 diabetes mellitus without complications; Z79.82 Long term (current) use of aspirin; Z79.84 Long term (current) use of oral hypoglycemic drugs; Z79.899 Other long term (current) drug therapy; Z68.38 Body mass index [BMI] 38.0-38.9, adult
CPT/HCPCS: 51702; 51798; 81001; 87086; 99283-25